=== PATIENT | female | born 1990 | race Two or more races ===

== ENCOUNTER 2016-09-06 10:05 | Emergency (ER) | payer SELFPAY ==
--- NOTE | 2016-09-06 10:21 | ER Document Report ---
ED Medical Screen (RME) - General Chief Complaint: Abdominal Pain Stated Complaint: LOWER ABDOMINAL PRESSURE Time seen by provider: 10:19 Mode of Arrival: Ambulatory Information source: Patient Notes: 26 yo female presnts to ed for abdominal pain dizziness and headache. dizziness comes and goes. LMP 03/21/16 TRAVEL OUTSIDE OF THE [place] IN LAST 30 DAYS: No - HPI Onset: Other - couple weeks Onset/Duration: Intermittent Quality of pain: Sharp Severity: Moderate Pain Level: 2 Associated Symptoms: Dizzy/lightheaded, Headache Exacerbated by: Other - wtress Relieved by: Denies Similar symptoms previously: Yes Recently seen / treated by doctor: No - Related Data Smoking: Non-smoker Frequency of alcohol use: None Drug Abuse: None Allergies/Adverse Reactions: No Known Allergies Allergy (Verified 09/08/14 17:38) Past Medical History Musculoskeltal Medical History: Reports Hx Musculoskeletal Trauma Traumatic Medical History: Reports: Hx Fractures Past Surgical History: Reports: Hx Tonsillectomy - Immunizations Immunizations up to date: Yes Hx Diphtheria, Pertussis, Tetanus Vaccination: Yes Physical Exam - Vital signs Vitals: Temp Pulse Resp BP Pulse Ox 97.8 F 92 16 115/62 99 09/06/16 10:15 09/06/16 10:15 09/06/16 10:15 09/06/16 10:15 09/06/16 10:15 Course - Vital Signs Vital signs: Temp Pulse Resp BP Pulse Ox 97.8 F 92 16 115/62 99 09/06/16 10:15 09/06/16 10:15 09/06/16 10:15 09/06/16 10:15 09/06/16 10:15
[2016-09-06 10:52] LABS: ABSOLUTE LYMPHOCYTES (AUTO) 1.2 10^3/uL (0.5-4.7); ABSOLUTE MONOCYTES (AUTO) 0.4 10^3/uL (0.1-1.4); ABSOLUTE NEUT (AUTO) 5.4 10^3/uL (1.7-8.2); BASOPHILS % (AUTO) 0.4 % (0-2); EOSINOPHILS % (AUTO) 0.4 % (0-6); HEMATOCRIT 27.9 % (36.0-47.0); HEMOGLOBIN 9.8 g/dL (12.0-15.5); HGB HCT DIFFERENCE 1.5; LYMPHOCYTES % (AUTO) 16.9 % (13-45); MEAN CORPUSCULAR HEMOGLOBIN 33.2 pg (27.0-33.4); MEAN CORPUSCULAR VOLUME 95 fl (80-97); MONOCYTES % (AUTO) 5.6 % (3-13); RED BLOOD COUNT 2.94 10^6/uL (3.72-5.28); RED CELL DISTRIBUTION WIDTH 12.6 % (11.5-14.0); SEGMENTED NEUTROPHILS % (AUTO) 76.7 % (42-78)
[2016-09-06 10:57] LABS: APPEARANCE,URINE TURBID; BILIRUBIN,URINE NEGATIVE (NEGATIVE); GLUCOSE, URINE NEGATIVE (NEGATIVE); KETONES,URINE NEGATIVE (NEGATIVE); LEUKOCYTE ESTERASE,URINE LARGE (NEGATIVE); NITRITE,URINE NEGATIVE (NEGATIVE); PROTEIN,URINE 30 mg/dL (NEGATIVE); URINE SPECIFIC GRAVITY 1.013; UROBILINOGEN,URINE NEGATIVE mg/dL (<2.0)
[2016-09-06] MEDS ORDERED: NORMAL SALINE 1000 ML 1,000 ML IV ONE (11:04)
[2016-09-06 11:23] LABS: ALANINE AMINOTRANSFERASE 23 U/L (9-52); ALBUMIN 3.3 g/dL (3.5-5.0); ALKALINE PHOSPHATASE 78 U/L (38-126); ANION GAP 8 (5-19); ASPARTATE AMINO TRANSFERASE 16 U/L (14-36); BILIRUBIN,TOTAL 0.5 mg/dL (0.2-1.3); BLOOD UREA NITROGEN 5 mg/dL (7-20); CARBON DIOXIDE 26 mmol/L (22-30); CHLORIDE 105 mmol/L (98-107); CREATININE RESULT 0.54 mg/dL (0.52-1.25); GLUCOSE 80 mg/dL (75-110); POTASSIUM 4.1 mmol/L (3.6-5.0)
[2016-09-06] MEDS ORDERED: CEFTRIAXONE 1 GM/D5W RTU 50 ML IV ONE (12:35)
--- NOTE | 2016-09-06 13:46 | ER Document Report ---
ED General - General Chief Complaint: Abdominal Pain Stated Complaint: LOWER ABDOMINAL PRESSURE Mode of Arrival: Ambulatory TRAVEL OUTSIDE OF THE [place] IN LAST 30 DAYS: No - HPI Patient complains to provider of: lower abdominal pain Notes: Patient coming in for evaluation of lower Sosa pain and some lightheadedness nausea. Patient states ongoing symptoms for the last week. Patient states recently found out that she was . Last Dejon cycles in March. Patient is a with 3 abortions. Denies any vaginal discharge vaginal bleeding. Patient currently does not have an [employer]M [employer] she sees health department. No recent travel no fevers no chills - Related Data Allergies/Adverse Reactions: No Known Allergies Allergy (Verified 09/08/14 17:38) Past Medical History - General Information source: Patient - Social History Smoking Status: Never Smoker Frequency of alcohol use: None Drug Abuse: None Family History: Other - Pt is adopted. Does not know Patient has suicidal ideation: No Patient has homicidal ideation: No Musculoskeltal Medical History: Reports Hx Musculoskeletal Trauma Traumatic Medical History: Reports: Hx Fractures Past Surgical History: Reports: Hx Tonsillectomy - Immunizations Immunizations up to date: Yes Hx Diphtheria, Pertussis, Tetanus Vaccination: Yes Review of Systems - Review of Systems Constitutional: No symptoms reported EENT: No symptoms reported Cardiovascular: No symptoms reported Respiratory: No symptoms reported Gastrointestinal: Abdominal pain, Nausea Genitourinary: No symptoms reported Female Genitourinary: No symptoms reported Musculoskeletal: No symptoms reported Skin: No symptoms reported Hematologic/Lymphatic: No symptoms reported Neurological/Psychological: No symptoms reported -: Yes All other systems reviewed and negative Physical Exam - Vital signs Vitals: Temp Pulse Resp BP Pulse Ox 97.8 F 92 16 115/62 99 09/06/16 10:15 09/06/16 10:15 09/06/16 10:15 09/06/16 10:15 09/06/16 10:15 Interpretation: Normal - General General appearance: Appears well, Alert - HEENT Head: Normocephalic, Atraumatic Eyes: Normal Pupils: PERRL - Respiratory Respiratory status: No respiratory distress Chest status: Nontender Breath sounds: Normal Chest palpation: Normal - Cardiovascular Rhythm: Regular Heart sounds: Normal auscultation Murmur: No - Abdominal Inspection: Gravid female Distension: No distension Bowel sounds: Normal Tenderness: Nontender Organomegaly: No organomegaly - Back Back: Normal, Nontender - Extremities General upper extremity: Normal inspection, Nontender, Normal color, Normal ROM , Normal temperature General lower extremity: Normal inspection, Nontender, Normal color, Normal ROM , Normal temperature, Normal weight bearing. No: Chace's sign - Neurological Neuro grossly intact: Yes Cognition: Normal Orientation: AAOx4 Kasi Coma Scale Eye Opening: Spontaneous Kasi Coma Scale Verbal: Oriented Kasi Coma Scale Motor: Obeys Commands [place] Coma Scale Total: 15 Speech: Normal Motor strength normal: LUE, RUE, LLE, RLE Sensory: Normal - Psychological Associated symptoms: Normal affect, Normal mood - Skin Skin Temperature: Warm Skin Moisture: Dry Skin Color: Normal Course - Re-evaluation Re-evalutation: 09/06/16 16:07 The patient presents with abdominal pain without signs of peritonitis or other life-threatening or serious etiology. The patient appears stable for discharge and has been instructed to return immediately if the symptoms worsen in any way , or in 8-12hr if not improved for re-evaluation. The patient has been instructed to return if the symptoms worsen or change in any way.. Patient with a UTI. Patient will be given antibiotics discuss case with [employer] patient's follow-up with the health department to get her Medicaid Medicare. Patient will be given Keflex urine was sent for culture. - Vital Signs Vital signs: Temp Pulse Resp BP Pulse Ox 98.2 F 90 17 113/64 99 09/06/16 13:58 09/06/16 13:58 09/06/16 13:58 09/06/16 13:58 09/06/16 13:58 - Laboratory Result Diagrams: 09/06/16 10:30 09/06/16 10:30 Laboratory results interpreted by me: 09/06/16 09/06/16 09/06/16 10:30 10:30 10:30 RBC 2.94 L Hgb 9.8 L Hct 27.9 L BUN 5 L Total Protein 6.0 L Albumin 3.3 L Beta HCG, Quant 66292.00 H Urine Protein 30 H Urine Blood SMALL H Ur Leukocyte Esterase LARGE H Discharge - Discharge Clinical Impression: UTI (urinary tract infection) Qualifiers: Urinary tract infection type: site unspecified Hematuria presence: without hematuria Qualified Code(s): N39.0 - Urinary tract infection, site not specified Twin Qualifiers: Multiple gestation type: unspecified Trimester: second trimester Qualified Code (s): O30.002 - Twin , unspecified number of placenta and unspecified number of amniotic sacs, second trimester Condition: Good Disposition: HOME, SELF-CARE Instructions: Cephalexin ([facility]), Urinary Tract Infection ([facility]), ([facility]) Additional Instructions: Is very important to follow-up with the health department for further evaluation of your . Please take antibiotics as prescribed. Please take nausea medication as prescribed For nausea and vomiting during I recomment: Start with 10-12.5 mg of pyridoxine (vitamin B6) three times a day for 2 days. If not fully effective, Increase to 12.5 mg of pyridoxine four times a day for 2 days. If not fully effective, Increase to 25 mg of pyridoxine three times a day for 2 days. If not fully effective, Continue 25 mg pyridoxine 3 times a day, and add 12.5 mg of doxylamine before bedtime each day for 2 days. If not fully effective, Continue 25 mg pyridoxine 3 times a day, and take 12.5 mg of doxylamine twice a day. If not fully effective, Continue 25 mg pyridoxine 3 times a day, and take 12.5 mg of doxylamine three times a day. If not fully effective, Continue 25 mg pyridoxine 3 times a day, and 12.5 mg of doxylamine 3 times a day , while adding Emetrol, one to two tablespoons (15-30 cc) taken once or twice a day as needed. (Emetrol is an [id number] mixture of sugar syrups and phosphoric acid [phosphorylated carbohydrate solution]) that acts by soothing the actual wall of the gastrointestinal tract). If not fully effective, Consult with your doctor. Prescriptions: Cephalexin Monohydrate [Keflex 500 mg Capsule] 500 mg PO QID 10 Days Metoclopramide HCl [Reglan] 5 mg PO Q6 #20 tablet Forms: Return to Work
[2016-09-06 15:26] VITALS: BP 113/64
== END 2016-09-06 13:58 | disposition home or self-care (01) ==
LOC: EDSTATUS 10:05 → ER 10:05
DX: N39.0 Urinary tract infection, site not specified (principal); O30.002 Twin pregnancy, unspecified number of placenta and unspecified number of amniotic sacs, second trimester; R10.9 Unspecified abdominal pain; R10.30 Lower abdominal pain, unspecified; R42 Dizziness and giddiness; R51 Headache
CPT/HCPCS: 99284; 96361; 96365; 36415; 87086; 84702; 85025; 80053; 81001; 76805; 76810; J7030; J0696

== ENCOUNTER 2016-10-07 10:25 | Inpatient (IN) | payer MEDICAID ==
[2016-10-07] MEDS ORDERED: RINGERS SOLUTION,LACTATED 1,000 ML IV PRN ×2 (10:33→18:10)
[2016-10-07] MEDS ORDERED: OXYTOCIN/NORMAL SALINE 20 UNIT/1,000 ML RTUINJ ONE (10:45)
[2016-10-07] MEDS ORDERED: MISOPROSTOL 0.2 MG TABLET ONE (10:45)
[2016-10-07] MEDS ORDERED: LIDOCAINE 1% INJ-PF (10 MG/ML) 30 ML SDV ONE (10:45)
[2016-10-07] MEDS ORDERED: BETAMET ACET/BETAMET NA INJ 6 MG/1 ML ONE ×2 (10:47→10:49)
[2016-10-07] MEDS ORDERED: BETAMET ACET/BETAMET NA INJ 6 MG/1 ML IM ONE (10:49)
[2016-10-07] MEDS ORDERED: METHYLERGONOVINE MALEATE INJ/PF 0.2 MG/1 ML AMPULE ONE (10:56)
[2016-10-07] MEDS ORDERED: EPHEDRINE SULFATE INJ 50 MG/1 ML AMPULE ONE (11:06)
[2016-10-07] MEDS ORDERED: FENTANYL/BUPIVACAINE/NS/PF 200 MCG/100 ML RTUINJ EPI ONE (11:07)
[2016-10-07] MEDS ORDERED: BUPIVACAINE HCL 0.25 % INJ/PF (2.5 MG/1 ML) 30 ML VIAL ONE (11:07)
[2016-10-07 11:10] LABS: ABSOLUTE LYMPHOCYTES (AUTO) 1.2 10^3/uL (0.5-4.7); ABSOLUTE MONOCYTES (AUTO) 0.4 10^3/uL (0.1-1.4); BASOPHILS % (AUTO) 0.4 % (0-2); EOSINOPHILS % (AUTO) 0.1 % (0-6); HEMATOCRIT 27.9 % (36.0-47.0); HEMOGLOBIN 9.5 g/dL (12.0-15.5); HGB HCT DIFFERENCE 0.6; LYMPHOCYTES % (AUTO) 14.1 % (13-45); MEAN CORPUSCULAR HEMOGLOBIN 32.4 pg (27.0-33.4); MEAN CORPUSCULAR HGB CONC 33.9 g/dL (32.0-36.0); MEAN CORPUSCULAR VOLUME 96 fl (80-97); RED BLOOD COUNT 2.92 10^6/uL (3.72-5.28); RED CELL DISTRIBUTION WIDTH 13.8 % (11.5-14.0); SEGMENTED NEUTROPHILS % (AUTO) 80.4 % (42-78); WHITE BLOOD COUNT 8.7 10^3/uL (4.0-10.5)
[2016-10-07] MEDS ORDERED: CEFAZOLIN 1 GM/D5W RTU 1 GM/50 ML RTUPB IV ONE ×3 (11:16→18:30)
--- NOTE | 2016-10-07 12:01 | L&D Flow Sheet ---
LD Flowsheet Datetime Report Generated by CPN: 10/07/2016 12:00 Datetime: 10/07/2016 11:46 Vital Signs NBP Sys/Rina/Mean (mmHg): 109 (QS system process) : 56 (QS system process) : 77 (QS system process) Pulse: 84 (QS system process) Datetime: 10/07/2016 11:45 Vital Signs NBP Sys/Rina/Mean (mmHg): 110 (QS system process) : 58 (QS system process) : 78 (QS system process) Pulse: 77 (QS system process) Datetime: 10/07/2016 11:44 Vital Signs NBP Sys/Rina/Mean (mmHg): 106 (QS system process) : 55 (QS system process) : 74 (QS system process) Pulse: 88 (QS system process) Datetime: 10/07/2016 11:43 Vital Signs NBP Sys/Rina/Mean (mmHg): 111 (QS system process) : 56 (QS system process) : 77 (QS system process) Pulse: 88 (QS system process) Datetime: 10/07/2016 11:42 Vital Signs NBP Sys/Rina/Mean (mmHg): 109 (QS system process) : 61 (QS system process) : 78 (QS system process) Pulse: 85 (QS system process) Datetime: 10/07/2016 11:41 Vital Signs NBP Sys/Rina/Mean (mmHg): 113 (QS system process) : 64 (QS system process) : 82 (QS system process) Pulse: 86 (QS system process) Vaginal Exam Dilatation (cm): 5.0 (Jney Alberto, RN) Effacement (%): 100 (Jeny Alberto, RN) Exam by: Dr. Lizama (Jeny Alberto, RN) Datetime: 10/07/2016 11:40 Vital Signs NBP Sys/Rina/Mean (mmHg): 119 (QS system process) : 61 (QS system process) : 84 (QS system process) Pulse: 86 (QS system process) Datetime: 10/07/2016 11:39 Vital Signs NBP Sys/Rina/Mean (mmHg): 115 (QS system process) : 65 (QS system process) : 84 (QS system process) Pulse: 80 (QS system process) Datetime: 10/07/2016 11:38 Vital Signs NBP Sys/Rina/Mean (mmHg): 110 (QS system process) : 57 (QS system process) : 76 (QS system process) Pulse: 68 (QS system process) Datetime: 10/07/2016 11:37 Vital Signs NBP Sys/Rina/Mean (mmHg): 104 (QS system process) : 56 (QS system process) : 76 (QS system process) Pulse: 82 (QS system process) Datetime: 10/07/2016 11:36 Vital Signs NBP Sys/Rina/Mean (mmHg): 112 (QS system process) : 55 (QS system process) : 76 (QS system process) Pulse: 80 (QS system process) Datetime: 10/07/2016 11:34 Vital Signs NBP Sys/Rina/Mean (mmHg): 132 (QS system process) : 67 (QS system process) : 93 (QS system process) Pulse: 93 (QS system process) Datetime: 10/07/2016 11:33 Vital Signs NBP Sys/Rina/Mean (mmHg): 149 (QS system process) : 86 (QS system process) : 106 (QS system process) Pulse: 98 (QS system process) Datetime: 10/07/2016 11:32 Vital Signs NBP Sys/Rina/Mean (mmHg): 152 (QS system process) : 95 (QS system process) : 116 (QS system process) Pulse: 93 (QS system process) Datetime: 10/07/2016 11:31 Vital Signs NBP Sys/Rina/Mean (mmHg): 137 (QS system process) : 86 (QS system process) : 104 (QS system process) Pulse: 83 (QS system process) Datetime: 10/07/2016 11:30 Anesthesia Epidural Procedure: Cath Placed (Jeny Alberto, RN) Anesthesia Epidural Procedure: Test Dose (Jeny Alberto, RN) Datetime: 10/07/2016 11:28 Pulse: 67 (QS system process) SpO2 (%): 100 (QS system process) Datetime: 10/07/2016 11:23 Pulse: 89 (QS system process) SpO2 (%): 100 (QS system process) Datetime: 10/07/2016 11:22 Procedure TIME OUT Procedure Verify: Correct Patient Identity; Correct Side and Site are Marked; Accurate Procedure Consent Form; Agreement on Procedure to be Done; Correct Patient Position (Jeny Dominguez, RN) Anesthesia Comments: Dr. Couch at bedside (Jeny Dominguez, RN) Datetime: 10/07/2016 11:18 Pulse: 91 (QS system process) SpO2 (%): 100 (QS system process) Datetime: 10/07/2016 11:13 Pulse: 98 (QS system process) SpO2 (%): 98 (QS system process) Datetime: 10/07/2016 10:52 Patient Care IV/Blood Work: New IV Bag Hung (Mary Marhefka, RN) Teaching Unit Routine: Consents Signed (Mary Marhefka, RN) Datetime: 10/07/2016 10:50 Medications Steroids: Celestone 12mg IM - Dose 1 (Mary Marhefka, RN) Medication Comments: Rt buttock (Mary Marhefka, RN) Datetime: 10/07/2016 10:36 Vital Signs NBP Sys/Rina/Mean (mmHg): 106 (QS system process) : 53 (QS system process) : 75 (QS system process) Pulse: 87 (QS system process) Datetime: 10/07/2016 10:31 Patient Care IV/Blood Work: IV Bolus Started (Mary Jo Zafar, RN) Datetime: 10/07/2016 10:29 Patient Position/Activity: Left Lateral (Mary Jo Zafar, RN) Datetime: 10/07/2016 10:28 Assessment A Comments: Monitors applied, explained to pt. (Mary Jo Zafar RN)
--- NOTE | 2016-10-07 14:01 | L&D Flow Sheet ---
LD Flowsheet Datetime Report Generated by CPN: 10/07/2016 14:00 Datetime: 10/07/2016 13:46 NBP Sys/Rina/Mean (mmHg): 114 (QS system process) : 59 (QS system process) : 81 (QS system process) Pulse: 88 (QS system process) LaborFlag: Antepartum (QS system process) Datetime: 10/07/2016 13:45 Monitor Mode: External; Palpation (Mary Jo Zafar RN) Frequency (min): 2.5-3 (Mary Jo Zafar, RN) Quality: Moderate (Mary Jo Zafar, RN) Duration (sec): 60-90 (Mary Jo Zafar, RN) Resting Tone (Palpate): Relaxed (Mary Jo Zafar, RN) Monitor Mode: External US (Mary Jo Zafar, RN) FHR Baseline Rate : 135 (Mary Jo Zafar, RN) Variability: Moderate 6-25 bpm (Mary Jo Zafar, RN) Accelerations: 15X15 (Mary Jo Zafar, RN) Decelerations: Variable (Mary Jo Zafar, RN) Monitor Mode: External US (Mary Jo Zafar, RN) FHR Baseline Rate : 135 (Mary Jo Zafar, RN) Variability: Moderate 6-25 bpm (Mary Jo Zafar, RN) Accelerations: 15X15 (Mary Jo Zafar, RN) Decelerations: None (Mary Jo Zafar, RN) Datetime: 10/07/2016 13:33 NBP Sys/Rina/Mean (mmHg): 118 (QS system process) : 63 (QS system process) : 83 (QS system process) Pulse: 80 (QS system process) LaborFlag: Antepartum (QS system process) Datetime: 10/07/2016 13:30 Monitor Mode: External; Palpation (Mary Jo Zafar, RN) Frequency (min): 1-4 (Mary Jo Zafar, RN) Quality: Moderate (Mary Jo Zafar, RN) Duration (sec): 60-100 (Mary Jo Zafar, RN) Resting Tone (Palpate): Relaxed (Mary Jo Zafar, RN) Monitor Mode: External US (Mary Jo Zafar, RN) FHR Baseline Rate : 135 (Mar Yjo Zafar, RN) Variability: Moderate 6-25 bpm (Mary Jo Zafar, RN) Accelerations: 15X15 (Mary Jo Zafar, RN) Decelerations: None (Mary Jo Zafar, RN) Monitor Mode: External US (Mary Jo Zafar, RN) Variability: Moderate 6-25 bpm (Mary Jo Zafar, RN) Accelerations: 15X15 (Mary Jo Zafar, RN) Decelerations: None (Mary Jo Zafar, RN) Datetime: 10/07/2016 13:16 NBP Sys/Rina/Mean (mmHg): 118 (QS system process) : 61 (QS system process) : 84 (QS system process) Pulse: 109 (QS system process) LaborFlag: Antepartum (QS system process) Datetime: 10/07/2016 13:15 Monitor Mode: External; Palpation (Mary Jo Zafar, RN) Frequency (min): 2-4 (Mary Jo Zafar, RN) Quality: Moderate (Mary Jo Zafar, RN) Duration (sec): 60-90 (Mary Jo Zafar, RN) Resting Tone (Palpate): Relaxed (Mary Jo Zafar, RN) Monitor Mode: External US (Mary Jo Zafar, RN) FHR Baseline Rate : 135 (Mary Jo Zafar, RN) Variability: Moderate 6-25 bpm (Mary Jo Zafar, RN) Accelerations: 15X15 (Mary Jo Zafar, RN) Decelerations: None (Mary Jo Zafar, RN) Monitor Mode: External US (Mary Jo Zafar, RN) FHR Baseline Rate : 140 (Mary Jo Zafar, RN) Variability: Moderate 6-25 bpm (Mary Jo Zafar, RN) Accelerations: 15X15 (Mary Jo Zafar, RN) Decelerations: None (Mary Jo Zafar, RN) Datetime: 10/07/2016 13:02 NBP Sys/Rina/Mean (mmHg): 117 (QS system process) : 61 (QS system process) : 83 (QS system process) Pulse: 86 (QS system process) LaborFlag: Antepartum (QS system process) Datetime: 10/07/2016 13:00 Monitor Mode: External; Palpation (Mary Jo Zafar, RN) Frequency (min): 1-3 (Mary Jo Zafar, RN) Quality: Moderate (Mary Jo Zafar, RN) Duration (sec): 60-80 (Mary Jo Zafar, RN) Resting Tone (Palpate): Relaxed (Mary Jo Zafar, RN) Monitor Mode: External US (Mary Jo Zafar, RN) FHR Baseline Rate : 130 (Mary Jo Zafar, RN) Variability: Moderate 6-25 bpm (Mary Jo Zafar, RN) Accelerations: 15X15 (Mary Jo Zafar, RN) Decelerations: None (Mary Jo Zafar, RN) Monitor Mode: External US (Mary Jo Zafar, RN) FHR Baseline Rate : 140 (Mary Jo Zafar, RN) Variability: Moderate 6-25 bpm (Mary Jo Zafar, RN) Accelerations: 15X15 (Mary Jo Zafar, RN) Decelerations: None (Mary Jo Zafar, RN) Datetime: 10/07/2016 12:46 NBP Sys/Rina/Mean (mmHg): 109 (QS system process) : 56 (QS system process) : 76 (QS system process) Pulse: 77 (QS system process) LaborFlag: Antepartum (QS system process) Datetime: 10/07/2016 12:45 Monitor Mode: External; Palpation (Mary Jo Zafar, RN) Frequency (min): 1.5-3 (Mary Jo Zafar, RN) Quality: Moderate (Mary Jo Zafar, RN) Duration (sec): 60-90 (Mary Jo Zafar, RN) Resting Tone (Palpate): Relaxed (Mary Jo Zafar, RN) Monitor Mode: External US (Mary Jo Zafar, RN) FHR Baseline Rate : 135 (Mary Jo Zafar, RN) Variability: Moderate 6-25 bpm (Mary Jo Zafar, RN) Accelerations: None (Mary Jo Zafar, RN) Accelerations: 15X15 (Mary Jo Zafar, RN) Decelerations: None (Mary Jo Zafar, RN) Monitor Mode: External US (Mary Jo Zafar, RN) FHR Baseline Rate : 140 (Mary Jo Zafar, RN) Variability: Moderate 6-25 bpm (Mary Jo Zafar, RN) Accelerations: None (Mary Jo Zafar, RN) Decelerations: None (Mary Jo Zafar, RN) Datetime: 10/07/2016 12:41 Dilatation (cm): 7.0 (Mary Jo Zafar RN) Effacement (%): 100 (Mary Jo Zafar RN) Exam by: Jessica Zafar RN (Mary Jo Zafar RN) Datetime: 10/07/2016 12:32 NBP Sys/Rina/Mean (mmHg): 101 (QS system process) : 55 (QS system process) : 72 (QS system process) Pulse: 70 (QS system process) LaborFlag: Antepartum (QS system process) Datetime: 10/07/2016 12:30 Monitor Mode: External; Palpation (Mary Jo Zafar RN) Frequency (min): 1.5-5 (Mary Jo Zafar RN) Quality: Moderate (Mary Jo Zafar RN) Duration (sec): 70-100 (Mary Jo Zafar RN) Resting Tone (Palpate): Relaxed (Mary Jo Zafar RN) Monitor Mode: External US (Mary Jo Zafar RN) FHR Baseline Rate : 140 (Mary Jo Zafar RN) Variability: Moderate 6-25 bpm (Mary Jo Zafar, RN) Accelerations: 15X15 (Mary Jolul Zafar, RN) Decelerations: None (Mary Jo Zafar, RN) Monitor Mode: External US (Mary Jo Zafar, RN) FHR Baseline Rate : 145 (Mary Jo Zafar, RN) Variability: Moderate 6-25 bpm (Mary Jo Zafar, RN) Accelerations: 10X10 (Mary Jo Zafar, RN) Decelerations: None (Mary Jo Zafar, RN) Datetime: 10/07/2016 12:18 NBP Sys/Rina/Mean (mmHg): 110 (QS system process) : 56 (QS system process) : 78 (QS system process) Pulse: 84 (QS system process) LaborFlag: Antepartum (QS system process) Datetime: 10/07/2016 12:15 Monitor Mode: External; Palpation (Mary Jo Zafar, RN) Frequency (min): 2-4 (Mary Jo Zafar, RN) Quality: Moderate (Mary Jo Zafar, RN) Duration (sec): 60-100 (Mary Jo Zafar, RN) Resting Tone (Palpate): Relaxed (Mary Jo Zafar, RN) Monitor Mode: External US (Mary Jo Zafar, RN) FHR Baseline Rate : 140 (Mary Jo Zafar, RN) Variability: Moderate 6-25 bpm (Mary Jo Zafar, RN) Accelerations: 15X15 (Mary Jo Zafar, RN) Decelerations: None (Mary Jo Zafar, RN) Monitor Mode: External US (Mary Jo Zafar, RN) FHR Baseline Rate : 150 (Mary Jo Zafar, RN) Variability: Moderate 6-25 bpm (Mary Jo Zafar, RN) Accelerations: 15X15 (Mary Jo Zafar, RN) Decelerations: None (Mary Jo Zafar, RN) Datetime: 10/07/2016 12:02 NBP Sys/Rina/Mean (mmHg): 112 (QS system process) : 62 (QS system process) : 81 (QS system process) Pulse: 83 (QS system process) LaborFlag: Antepartum (QS system process) Datetime: 10/07/2016 12:00 Monitor Mode: External; Palpation (Mary Jo Zafar, RN) Frequency (min): 2-3 (Mary Jo Zafar, RN) Quality: Moderate (Mary Jo Zafar, RN) Duration (sec): 60-90 (Mary Jo Zafar RN) Resting Tone (Palpate): Relaxed (Mary Jo Zafar RN) Monitor Mode: External US (Mary Jo Zafar RN) FHR Baseline Rate : 140 (Mary Jo Zafar RN) Variability: Moderate 6-25 bpm (Mary Jo Zafar RN) Accelerations: 15X15 (Mary Jo Zafar RN) Decelerations: Late (Mary Jo Zafar RN) Monitor Mode: External US (Mary Jo Zafar RN) FHR Baseline Rate : 140 (Mary Jo Zafar RN) Variability: Moderate 6-25 bpm (Mary Jo Zafar RN) Accelerations: 15X15 (Mary Jo Zafar RN) Decelerations: None (Mary Jo Zafar RN)
[2016-10-07 14:13] LABS: APPEARANCE,URINE CLEAR; BILIRUBIN,URINE NEGATIVE (NEGATIVE); GLUCOSE, URINE NEGATIVE (NEGATIVE); KETONES,URINE 20 mg/dL (NEGATIVE); LEUKOCYTE ESTERASE,URINE SMALL (NEGATIVE); NITRITE,URINE NEGATIVE (NEGATIVE); PROTEIN,URINE NEGATIVE (NEGATIVE); URINE SPECIFIC GRAVITY 1.005; UROBILINOGEN,URINE NEGATIVE mg/dL (<2.0)
[2016-10-07 14:27] LABS: URINE BARBITURATES SCREEN NEGATIVE; URINE METHADONE SCREEN NEGATIVE; URINE OPIATES LOW NEGATIVE; URINE PHENCYCLIDINE SCREEN NEGATIVE
--- NOTE | 2016-10-07 16:01 | L&D Flow Sheet ---
LD Flowsheet Datetime Report Generated by CPN: 10/07/2016 16:00 Datetime: 10/07/2016 15:37 Membrane Status: Ruptured (Mary Jo Zafar RN) Membranes Ruptured Date/Time: 10/07/2016 15:37 (Mary Jo Zafar RN) Membranes Rupture Method: Artificial (Mary Jo Zafar RN) Amniotic Fluid Color: Clear (Mary Jo Zafar RN) Amniotic Fluid Amount: Moderate (Mary Jo Zafar RN) Amniotic Fluid Odor: Normal (Mary Jo Zafar RN) Datetime: 10/07/2016 15:32 NBP Sys/Rina/Mean (mmHg): 128 (QS system process) : 68 (QS system process) : 91 (QS system process) Pulse: 82 (QS system process) LaborFlag: Antepartum (QS system process) Datetime: 10/07/2016 15:30 Monitor Mode: External; Palpation (Mary Jo Zafar, RN) Frequency (min): 1.5-4 (Mary Jo Zafar, RN) Quality: Moderate (Mary Jo Zafar, RN) Duration (sec): 60-80 (Mary Jo Zafar, RN) Resting Tone (Palpate): Relaxed (Mary Jo Zafar, RN) Monitor Mode: External US (Mary Jo Zafar, RN) FHR Baseline Rate : 145 (Mary Jo Zafar, RN) Variability: Moderate 6-25 bpm (Mary Jo Zafar, RN) Accelerations: 15X15 (Mary Jo Zafar, RN) Decelerations: None (Mary Jo Zafar, RN) Monitor Mode: External US (Mary Jo Zafar, RN) FHR Baseline Rate : 140 (Mary Jo Zafar, RN) Variability: Moderate 6-25 bpm (Mary Jo Zafar, RN) Accelerations: 15X15 (Mary Jo Zafar, RN) Decelerations: None (Mary Jo Zafar, RN) Datetime: 10/07/2016 15:16 NBP Sys/Rina/Mean (mmHg): 111 (QS system process) : 57 (QS system process) : 80 (QS system process) Pulse: 86 (QS system process) LaborFlag: Antepartum (QS system process) Datetime: 10/07/2016 15:15 Monitor Mode: External; Palpation (Mary Jo Zafar, RN) Frequency (min): 1-3 (Mary Jo Zafar, RN) Quality: Moderate (Mary Jo Zafar, RN) Duration (sec): 60-90 (Mary Jo Zafar, RN) Resting Tone (Palpate): Relaxed (Mary Jo Zafar, RN) Monitor Mode: External US (Mary Jo Zafar, RN) FHR Baseline Rate : 145 (Mary Jo Zafar, RN) Variability: Moderate 6-25 bpm (Mary Jo Zafar, RN) Accelerations: 15X15 (Mary Jo Zafar, RN) Decelerations: None (Mary Jo Zafar, RN) Monitor Mode: External US (Mary Jo Zafar, RN) FHR Baseline Rate : 140 (Mary Jo Zafar, RN) Variability: Moderate 6-25 bpm (Mary Jo Zafar, RN) Accelerations: 15X15 (Mary Jo Zafar, RN) Decelerations: None (Mary Jo Zafar, RN) Datetime: 10/07/2016 15:02 NBP Sys/Rina/Mean (mmHg): 113 (QS system process) : 56 (QS system process) : 75 (QS system process) Pulse: 85 (QS system process) Temperature (F): 98.2 (Mary Jo Zafar RN) Temperature (C): 36.8 (QS system process) Temperature Route: Oral (Mary Jo Zafar RN) LaborFlag: Antepartum (QS system process) Datetime: 10/07/2016 15:00 Monitor Mode: External; Palpation (Mary Jo Zafar RN) Frequency (min): 1-3 (Mary Jo Zafar RN) Quality: Moderate (Mary Jo Zafar RN) Duration (sec): 60-80 (Mary Jo Zafar RN) Resting Tone (Palpate): Relaxed (Mary Jo Zafar RN) Monitor Mode: External US (Mary Jo Zafar RN) FHR Baseline Rate : 145 (Mary Jo Zafar RN) Variability: Moderate 6-25 bpm (Mary Jo Zafar RN) Accelerations: 15X15 (Mary Jo Zafar RN) Decelerations: None (Mary Jo Zafar RN) Monitor Mode: External US (Mary Jo Zafar RN) FHR Baseline Rate : 140 (Mary Jo Zafar, RN) Variability: Moderate 6-25 bpm (Mary Jo Zafar, RN) Accelerations: 15X15 (Mary Jo Zafar, RN) Decelerations: Variable (Mary Jo Zafar, RN) Datetime: 10/07/2016 14:47 NBP Sys/Rina/Mean (mmHg): 110 (QS system process) : 51 (QS system process) : 74 (QS system process) Pulse: 72 (QS system process) LaborFlag: Antepartum (QS system process) Datetime: 10/07/2016 14:45 Monitor Mode: External; Palpation (Mary Jo Zafar RN) Frequency (min): 1-3 (Mary Jo Zafar RN) Quality: Moderate (Mary Jo Zafar RN) Duration (sec): 60-90 (Mary Jo Zafar RN) Resting Tone (Palpate): Relaxed (Mary Jo Zafar RN) Monitor Mode: External US (Mary Jo Zafar RN) FHR Baseline Rate : 145 (Mary Jo Zafar RN) Variability: Moderate 6-25 bpm (Mary Jo Zafar, RN) Accelerations: None (Mary Jo Zafar, RN) Decelerations: Late (Mary Jo Zafar, RN) Monitor Mode: External US (Mary Jo Zafar, RN) FHR Baseline Rate : 140 (Mary Jo Zafar, RN) Variability: Moderate 6-25 bpm (Mary Jo Zafar, RN) Accelerations: None (Mary Jo Zafar, RN) Decelerations: Variable (Mary Jo Zafar, RN) Datetime: 10/07/2016 14:36 Patient Position/Activity: Left Lateral (Mary Jo Zafar, RN) Datetime: 10/07/2016 14:33 Dilatation (cm): 8.0 (Mary Jo Zafar, RN) Effacement (%): 100 (Mary Jo Zafar, RN) Station: 0 (Mary Jo Zafar, RN) Exam by: Dr. Lizama (Mary Jo Zafar, BOB) Datetime: 10/07/2016 14:31 NBP Sys/Rina/Mean (mmHg): 105 (QS system process) : 55 (QS system process) : 74 (QS system process) Pulse: 82 (QS system process) LaborFlag: Antepartum (QS system process) Datetime: 10/07/2016 14:30 Monitor Mode: External; Palpation (Mary Jo Zafar, RN) Frequency (min): 1-3 (Mary Jo Zafar, RN) Quality: Moderate (Mary Jo Zafar, RN) Duration (sec): 60-90 (Mary Jo Zafar, RN) Resting Tone (Palpate): Relaxed (Mary Jo Zafar, RN) Monitor Mode: External US (Mary Jo Zafar, RN) FHR Baseline Rate : 145 (Mary Jo Zafar, RN) Variability: Moderate 6-25 bpm (Mary Jo Zafar, RN) Accelerations: 15X15 (Mary Jo Zafar, RN) Decelerations: None (Mary Jo Zafar, RN) Monitor Mode: External US (Mary Jo Zafar, RN) FHR Baseline Rate : 145 (Mary Jo Zafar, RN) Variability: Moderate 6-25 bpm (Mary Jo Zafar, RN) Accelerations: 15X15 (Mary Jo Zafar, RN) Decelerations: None (Mary Jo Zafar, RN) Datetime: 10/07/2016 14:18 NBP Sys/Rina/Mean (mmHg): 107 (QS system process) : 54 (QS system process) : 76 (QS system process) Pulse: 80 (QS system process) LaborFlag: Antepartum (QS system process) Datetime: 10/07/2016 14:15 Monitor Mode: External; Palpation (Mary Jo Zafar, RN) Frequency (min): 1-4 (Mary Jo Zafar, RN) Quality: Moderate (Mary Jo Zafar, RN) Duration (sec): 60-90 (Mary Jo Zafar, RN) Resting Tone (Palpate): Relaxed (Mary Jo Zafar, RN) Monitor Mode: External US (Mary Jo Boon, RN) FHR Baseline Rate : 140 (Mary Jo Boon, RN) Variability: Moderate 6-25 bpm (Mary Jolul Boon, RN) Accelerations: 15X15 (Mary Jolul Boon, RN) Decelerations: Late (Mary Jo Zafar, RN) Monitor Mode: External US (Mary Jo Zafar, RN) FHR Baseline Rate : 145 (Mary Jo Boon, RN) Variability: Moderate 6-25 bpm (Mary Jo Zafar, RN) Accelerations: 15X15 (Mary Jo Zafar, RN) Decelerations: None (Mary Jo Zafar, RN) Datetime: 10/07/2016 14:10 Patient Position/Activity: Left Lateral (Mary Jo Zafar, RN) Datetime: 10/07/2016 14:01 NBP Sys/Rina/Mean (mmHg): 120 (QS system process) : 62 (QS system process) : 84 (QS system process) Pulse: 77 (QS system process) LaborFlag: Antepartum (QS system process) Datetime: 10/07/2016 14:00 Monitor Mode: External; Palpation (Mary Jo Zafar RN) Frequency (min): 2-3 (Mary Jo Zafar RN) Quality: Moderate (Mary Jo Zafar RN) Duration (sec): 60-90 (Mary Jo Zafar RN) Resting Tone (Palpate): Relaxed (Mary Jo Zafar RN) Monitor Mode: External US (Mary Jo Zafar RN) FHR Baseline Rate : 140 (Mary Jo Zafar RN) Variability: Moderate 6-25 bpm (Mary Jo Zafar RN) Accelerations: 15X15 (Mary Jo Zafar RN) Decelerations: None (Mary Jo Zafar RN) Monitor Mode: External US (Mary Jo Zafar RN) FHR Baseline Rate : 145 (Mary Jo Zafar RN) Variability: Moderate 6-25 bpm (Mary Jo Zafar RN) Accelerations: 15X15 (Mary Jo Zafar RN) Decelerations: None (Mary Jo Zafar RN)
[2016-10-07] MEDS ORDERED: MORPHINE SULFATE 10 MG/ML INJ ONE (16:45)
[2016-10-07] MEDS ORDERED: PROPOFOL INJ 200 MG/20 ML VIAL IV ONE (16:45)
[2016-10-07] MEDS ORDERED: ONDANSETRON HCL INJ/PF 4 MG/2 ML SDV ONE (16:45)
--- NOTE | 2016-10-07 17:24 | Brief Operative Note ---
BRIEF OPERATIVE REPORT DATE OF SURGERY: 10/07/16 TIME OF SURGERY: 17:00 PREOPERATIVE DIAGNOSIS: 31week twins labor +cocaine and mj. abruption. undesired future fertility POSTOPERATIVE DIAGNOSIS: same, delivered SURGEON: JAYLEEN HARRIS FINDINGS: twin A male vertex 1570g (3lb7oz) ap 6/8 . Twin B male footling breech 1820g emergent c/s. twin placentas intact 3vc times 2 removed with noted abruption COMPLICATIONS: none ESTIMATED BLOOD LOSS: 1000 TISSUE REMOVED OR ALTERED: placenta TECHNICAL PROCEDURE: Spontaneous Vaginal Delivery Twin A. Primary STAT Low Transverse Section Twin B. Bilateral Tubal Ligation with filshie clips
[2016-10-07 17:49] LABS: ARTERIAL BLOOD BASE EXCESS -6.7 mmol/L
[2016-10-07] MEDS ORDERED: DIPHENHYDRAMINE HCL 50 MG/ML VIAL ONE (17:49)
[2016-10-07] MEDS ORDERED: MEPERIDINE HCL/PF INJ 25 MG/1 ML DISP.SYRIN ONE (17:49)
[2016-10-07] MEDS ORDERED: PROMETHAZINE HCL INJ 25 MG/1 ML VIAL ONE (17:49)
--- NOTE | 2016-10-07 18:01 | L&D Flow Sheet ---
LD Flowsheet Datetime Report Generated by CPN: 10/07/2016 18:00 Datetime: 10/07/2016 17:59 NBP Sys/Rina/Mean (mmHg): 117 (QS system process) : 68 (QS system process) : 85 (QS system process) Pulse: 79 (QS system process) Datetime: 10/07/2016 17:58 Pulse: 81 (QS system process) SpO2 (%): 98 (QS system process) Datetime: 10/07/2016 17:54 NBP Sys/Rina/Mean (mmHg): 112 (QS system process) : 66 (QS system process) : 84 (QS system process) Pulse: 85 (QS system process) Datetime: 10/07/2016 17:53 Pulse: 74 (QS system process) SpO2 (%): 98 (QS system process) Datetime: 10/07/2016 17:49 NBP Sys/Rina/Mean (mmHg): 115 (QS system process) : 63 (QS system process) : 81 (QS system process) Pulse: 89 (QS system process) Datetime: 10/07/2016 17:48 Pulse: 85 (QS system process) SpO2 (%): 99 (QS system process) Datetime: 10/07/2016 17:44 NBP Sys/Rina/Mean (mmHg): 114 (QS system process) : 66 (QS system process) : 85 (QS system process) Pulse: 76 (QS system process) Datetime: 10/07/2016 17:43 Pulse: 79 (QS system process) SpO2 (%): 98 (QS system process) Datetime: 10/07/2016 17:39 NBP Sys/Rina/Mean (mmHg): 113 (QS system process) : 63 (QS system process) : 81 (QS system process) Pulse: 80 (QS system process) Datetime: 10/07/2016 17:38 Pulse: 80 (QS system process) SpO2 (%): 98 (QS system process) Datetime: 10/07/2016 17:34 NBP Sys/Rina/Mean (mmHg): 111 (QS system process) : 65 (QS system process) : 81 (QS system process) Pulse: 78 (QS system process) Datetime: 10/07/2016 17:33 Pulse: 83 (QS system process) SpO2 (%): 97 (QS system process) Datetime: 10/07/2016 17:29 NBP Sys/Rina/Mean (mmHg): 114 (QS system process) : 63 (QS system process) : 83 (QS system process) Pulse: 90 (QS system process) Respirations: 16 (Mary Jo Zafar RN) Datetime: 10/07/2016 17:28 Pulse: 87 (QS system process) SpO2 (%): 97 (QS system process) Datetime: 10/07/2016 17:24 NBP Sys/Rina/Mean (mmHg): 118 (QS system process) : 63 (QS system process) : 84 (QS system process) Pulse: 92 (QS system process) Respirations: 16 (Mary Jo Zafar RN) Pain Scale: 0 (Mary Jo Zafar RN) Pain Presence: None/Denies (Mary Jo Zafar RN) Pain Type: N/A (Mary Jo Zafar RN) Pain Goal: 0 (Mary Jo Zafar RN) Datetime: 10/07/2016 17:23 Pulse: 102 (QS system process) SpO2 (%): 97 (QS system process) Datetime: 10/07/2016 17:19 NBP Sys/Rina/Mean (mmHg): 122 (QS system process) : 59 (QS system process) : 84 (QS system process) Pulse: 105 (QS system process) Respirations: 16 (Mary Jo Zafar RN) Datetime: 10/07/2016 17:17 Pulse: 109 (QS system process) SpO2 (%): 97 (QS system process) Datetime: 10/07/2016 17:13 NBP Sys/Rina/Mean (mmHg): 122 (QS system process) : 58 (QS system process) : 82 (QS system process) Pulse: 109 (QS system process) Respirations: 16 (Mary Jo Zafar RN) Temperature (F): 97.7 (Mary Jo Zafar, RN) Temperature (C): 36.5 (QS system process) Temperature Route: Oral (Mary Jo Zafar RN) Pain Scale: 0 (Mary Jo Zafar RN) Pain Presence: None/Denies (Mary Jo Zafar RN) Pain Type: N/A (Mary Jo Zafar RN) Pain Goal: 0 (Mary Jo Zafar RN) Datetime: 10/07/2016 17:12 Stage of : Recovery (Mary Jo Zafar RN) Pulse: 112 (QS system process) SpO2 (%): 99 (QS system process) Datetime: 10/07/2016 16:32 Procedure Type: Primary c/section (Mary Jo Zafar RN) Procedure Verify: Correct Patient Identity; Correct Side and Site are Marked; Accurate Procedure Consent Form; Agreement on Procedure to be Done; Correct Patient Position (Mary Jo Zafar RN) Datetime: 10/07/2016 16:15 Monitor Mode: External (Jeny Alberto, RN) Frequency (min): 1-3 (Jeny Alberto, RN) Quality: Moderate (Jeny Alberto, RN) Duration (sec): 60-110 (Jeny Alberto, RN) Resting Tone (Palpate): Relaxed (Jeny Alberto, RN) Monitor Mode: External US (Jeny Alberto, RN) FHR Baseline Rate : 170 (Jeny Alberto, RN) Variability: Moderate 6-25 bpm (Jeny Alberto, RN) Accelerations: None (Jeny Alberto, RN) Decelerations: Variable (Jeny Alberto, RN) Monitor Mode: External US (Jeny Alberto, RN) FHR Baseline Rate : 130 (Jeny Alberto, RN) Variability: Moderate 6-25 bpm (Jeny Alberto, RN) Accelerations: None (Jeny Alberto, RN) Decelerations: Variable (Jeny Alberto, RN) Datetime: 10/07/2016 16:00 Monitor Mode: External (Jeny Alberto, RN) Frequency (min): x1 (Jeny Alberto, RN) Quality: Moderate (Jeny Alberto, RN) Duration (sec): 70 (Jeny Alberto, RN) Resting Tone (Palpate): Relaxed (Jeny Alberto, RN) Monitor Mode: External US (Jeny Alberto, RN) FHR Baseline Rate : 140 (Jeny Alberto, RN) Variability: Moderate 6-25 bpm (Jeny Alberto, RN) Accelerations: 15X15 (Jeny Alberto, RN) Decelerations: None (Jeny Alberto, RN) Monitor Mode: External US (Jeny Alberto, RN) FHR Baseline Rate : 130 (Jeny Alberto, RN) Variability: Moderate 6-25 bpm (Jeny Alberto, RN) Accelerations: 15X15 (Jeny Alberto, RN) Decelerations: None (Jeny Alberto, RN)
[2016-10-07] MEDS ORDERED: HYDROMORPHONE HCL INJ/PF 2 MG/ML AMPULE IV PRN (18:10)
[2016-10-07] MEDS ORDERED: DIPH/PERTUSS(ACELL)/TETANUS VAC/PF 0.5 ML SYR (>=10YO) IM PRN (18:10)
[2016-10-07] MEDS ORDERED: PROMETHAZINE HCL INJ 25 MG/1 ML VIAL IV PRN (18:10)
[2016-10-07] MEDS ORDERED: ACETAMINOPHEN 100 ML IV PRN (18:10)
[2016-10-07] MEDS ORDERED: SIMETHICONE 80 MG TAB.CHEW PO PRN (18:10)
[2016-10-07] MEDS ORDERED: OXYCODONE-ACETAMINOPHEN 5-325 MG TABLET PO PRN (18:10)
[2016-10-07] MEDS ORDERED: ACETAMINOPHEN 325 MG TABLET PO PRN (18:10)
[2016-10-07] MEDS ORDERED: MEASLES,MUMPS&RUBELLA VACC/PF 0.5 ML VIAL SUBCUT PRN (18:10)
[2016-10-07] MEDS ORDERED: OXYTOCIN/NORMAL SALINE 1,000 ML IV PRN (18:10)
[2016-10-07] MEDS ORDERED: HYDROMORPHONE HCL INJ/PF 2 MG/ML AMPULE ONE (18:13)
[2016-10-07] MEDS ORDERED: KETOROLAC TROMETHAMINE INJ/PF 30 MG/1 ML SDV ONE (18:32)
[2016-10-07] MEDS ORDERED: ACETAMINOPHEN 100 ML IV ONE (18:37)
[2016-10-07] MEDS ORDERED: DOCUSATE SODIUM 100 MG CAPSULE PO ONE (19:00)
--- NOTE | 2016-10-07 19:29 | Delivery Summary ---
Del Sum A-C Datetime Report Generated by CPN: 10/07/2016 19:28 ADMISSION DATA Chief Complaint: Uterine Contractions Indication for Induction: Not Applicable Admission Impression: , Intrauterine ; Active Labor; Intact Membranes Admit Provider Comments: twins active labor. Discussed risks and benefits of vaginal delivery and c/s. Discussed possible need for c/s 2nd twin as well as possible version. betamethasone times one given. ancef one gram given to cover gbs or c/s. for epidural DELIVERY PERSONNEL Delivery Doctor:: Awilda Lizama MD Anesthesiologist:: Bean Couch MD PLATE STACKER HAND:: Ceasar Andrade CRNA Labor and Delivery Nurse:: Mary Jo Zafar RNintake nurse Nurse:: Jeny Dominguez RN Head Holder:: Dr. Reza Mo Nurse Practitioner:: SHAWN Alvarado Nursery Nurse:: Clara Wong RN Nursery Nurse:: Cristina Chan RN Student Observers:: TAMMI Gomez Student Oceanology Teacher/SAWMILLING OPERATOR: Taisha Lion, OSCAR Oceanology Teacher/SAWMILLING OPERATOR: Marck Farr CST MATERNAL INFORMATION Delivery Anesthesia: Epidural; General Medications After Delivery: Pitocin Drip 20 Units/1000ml NSS Estimated Blood Loss (ml): 1000 Maternal Complications: Abruptio Placenta; Hemorrhage Provider Comments: Twin A male vertex 1570g (3-7) ap 6/8 Twin B male Stat C/S footling breech wt 1820g Twin placentas with both noted to have approx 20% abruption delivered intact. normal anatomy LABOR SUMMARY EDC: 12/07/2016 00:00 No. Babies in Womb: 2 Attempted: No Labor Anesthesia: Epidural LABOR INFORMATION Reason for Induction: Not Applicable Onset of Labor: 10/07/2016 08:30 Complete Dilatation: 10/07/2016 15:52 Oxytocin: N/A Group B Beta Strep: unknown Antibiotics # of Doses: 1 Antibiotics Time of Last Dose: 1100 Name of Antibiotic Given: Ancef Steroids Given: Partial Course Reason Steroids Not Administered: Not Applicable MEMBRANES Membranes Rupture Method: Artificial Rupture of Membranes: 10/07/2016 15:37 Length of Rupture (hr): 0.67 Amniotic Fluid Color: Clear Amniotic Fluid Amount: Moderate Amniotic Fluid Odor: Normal STAGES OF LABOR Stage 1 hr: 7 Stage 1 min: 22 Stage 2 hr: 0 Stage 2 min: 25 Stage 3 hr: 0 Stage 3 min: 20 Total Time in Labor hr: 8 Total Time in Labor min: 7 VAGINAL DELIVERY Episiotomy: None Laceration Extension: N/A Laceration Type: None Laceration Repair: Not Applicable Sponge Count Correct: Yes CSECTION DELIVERY Primary Indication: Nonreassuring Status Secondary Indication: Breech Presentation CSection Urgency: Emergency CSection Incidence: Primary Labor: Labor Elective: Nonelective CSection Incision: Lower Uterine Transverse Sterilization Procedure: Ring and Clip Other Sterilization Procedure: filshie Uterine Closure: Double-layer closure BABY A INFORMATION Delivery Date/Time: 10/07/2016 16:17 Method of Delivery: Vaginal Born in Route : No : N/A Forceps: N/A Vacuum Extraction: N/A Shoulder Dystocia : No PRESENTATION/POSITION BABY A Presentation: Cephalic Cephalic Presentation: Vertex Vertex Position: Left Occipital Anterior Breech Presentation: N/A PLACENTA INFORMATION BABY A Placenta Delivery Time : 10/07/2016 16:37 Placenta Method of Delivery: Manual Removal Placenta Status: Delivered SCORES BABY A Heart Rate 1 min: >100 bpm Resp Effort 1 min: Good Cry Reflex Irritability 1 min: Grimace Muscle Tone 1 min: Some Flexion of Extremities Color 1 min: Blue/Pale Resuscitation Effort 1 min: Tactile Stimulation SCORE 1 MIN: 6 Heart Rate 5 min: >100 bpm Resp Effort 5 min: Good Cry Reflex Irritability 5 min: Grimace Muscle Tone 5 min: Some Flexion of Extremities Color 5 min: Completely Waggoner SCORE 5 MIN: 8 INFANT INFORMATION BABY A Gestational Age at Delivery: 31.2 Gestational Status: - <34 Weeks Outcome : Liveborn Condition : Stable Sex: Male IDENTIFICATION BABY A Infant Verification Date/Time: 10/07/2016 11:02 ID Band Number: [id number] Mother's Name Verified: Yes RN Verifying Infant: Nigel Werner RN/R Snoa RN WEIGHT/LENGTH BABY A Birthweight (gm): 1570 Infant Weight (lb): 3 Infant Weight (oz): 7 Infant Length (in): 17.00 Infant Length (cm): 43.18 CORD INFORMATION BABY A No. Cord Vessels: 3 Nuchal Cord : Around Neck x1, Loose Cord Blood Taken: Yes-For Storage (Mom's Blood type +) Suction: Mouth; Nose ASSESSMENT BABY A Infant Complications: Other Infant Complications- Other: Physical Findings at Delivery: Within Normal Limits Infant Respirations: Appears Normal Skin to Skin: No Care By: E. Cal[place], RN and D. Matter, [employer] AUTHORING SPECIALIST Transferred To: NICU (Annotations: Data stored by [facility] on behalf of user) BABY B INFORMATION Infant Delivery Date/Time: 10/07/2016 16:36 Method of Delivery : Born in Route : No : N/A Forceps : N/A Vacuum Extraction: N/A Shoulder Dystocia : No SHOULDER DYSTOCIA BABY B Infant Delivery Date/Time: 10/07/2016 16:36 PRESENTATION/POSITION BABY B Presentation : Breech Cephalic Position : N/A Breech Position: Double Footling ROM/PLACENTA INFO BABY B Rupture of Membranes: 10/07/2016 16:36 Length of Rupture (hr): 0.00 Placenta Delivery Time : 10/07/2016 16:37 Placenta Method of Delivery: Manual Removal Placental Status : Delivered SCORES BABY B Heart Rate 1 min: >100 bpm Resp Effort 1 min: Absent Reflex Irritability 1 min: No Response Muscle Tone 1 min: Flaccid Color 1 min: Blue/Pale Resuscitation Effort 1 min: Tactile Stimulation; PPV/NCPAP SCORE 1 MIN: 2 Heart Rate 5 min: >100 bpm Resp Effort 5 min: Slow, Irregular Reflex Irritability 5 min: Grimace Muscle Tone 5 min: Some Flexion of Extremities Color 5 min: Body Waggoner, Extremities Blue Resuscitation Effort 5 min: Tactile Stimulation; PPV/NCPAP SCORE 5 MIN: 6 Heart Rate 10 min: >100 bpm Resp Effort 10 min: Slow, Irregular Reflex Irritability 10 min: Cough or Sneeze or Pulls Away Muscle Tone 10 min: Some Flexion of Extremities Color 10 min: Completely Waggoner Resuscitation Effort 10 min: Tactile Stimulation; PPV/NCPAP; Endotracheal Intubation SCORE 10 MIN: 8 INFORMATION BABY B Gestational Age at Delivery: 31.2 Gestational Status : - <34 Weeks Infant Outcome : Liveborn Infant Condition : Fair Sex : Male IDENTIFICATION BABY B Verification Date/Time: 10/07/2016 11:03 ID Band Number : [id number] Mother's Name Verified: Yes RN Verifying : B Baidy RN/R Andrahemorenaka RN WEIGHT/LENGTH BABY B Birthweight (gm): 1820 Infant Weight (lb) : 4 Weight (oz): 0 Infant Length (in): 17.00 Infant Length (cm): 43.18 CORD INFORMATION BABY B No. Cord Vessels : 3 Nuchal Cord : N/A Cord Blood Taken : Yes-For Storage (Mom's Blood Type +) Suction : Mouth; Nose ASSESSMENT BABY B Complications : Extended Bradycardia; Other Complications- Other: Physical Findings at Delivery: Within Normal Limits Skin to Skin: No Head Holder/ALS Called : Yes Infant Care By : Mami Wong RN and Dr. Mo Transfer To: NICU SIGNATURES Signature: with User ID: [email or web address]
--- NOTE | 2016-10-07 19:30 | Admission Physical ---
Datetime Report Generated by [facility]: 10/07/2016 19:30 CURRENT ADMISSION Hx Assessment: The History has been Reviewed and is Current Chief Complaint: Uterine Contractions Indication for Induction: Not Applicable Admit Plan: Admit to Unit; Initiate Labor Protocol (Annotations: Data stored by [facility] on behalf of user) ALLERGIES Medication Allergies: No Medication Allergies: No Known Allergies (10/07/2016) Latex: No Latex Allergies Food Allergies: None Environmental Allergies: None OBSTETRICAL HISTORY EDC: 12/07/2016 00:00 : 5 Para: 1 Term: 1 : 0 SAB: 0 IAB: 2 Ectopic: 0 Livin Cesareans: 0 VBACs: 0 Multiple Births: 0 Gestational Diabetes: No Rh Sensitization: No Incompetent Cervix: No KENDRA: No Infertility: No ART Treatment: No Uterine Anomaly: No IUGR: No Hx Previous C/S: No Macrosomia: No Hx Loss/Stillborn: No PIH: No Hx : No Placenta Previa/Abruption: No Depression/PP Depression: No PTL/PROM: No Post Hemorrhage: No Current Procedures: Ultrasound Obstetrical History Comments: G1 - at 41 wks (2009), shoulder dystocia G2 - EAB at 18 wks (2011) G3 - EAB at 18 wks (2013) G4 - EAB at 18 wks (2015) G5 - current , late PNC, twin gestation SEE RECORDS Alcohol: No Marijuana : Yes Cocaine: Yes Other Illicit Drugs: No Cigarettes: Former Smoker. [id number] MEDICAL HISTORY Diabetes: No Blood Transfusion: No Pulmonary Disease (Asthma, TB): No Breast Disease: No Hypertension: No Scout Leaser Surgery: No Heart Disease: No Hosp/Surgery: Yes Autoimmune Disorder: No Anesthetic Complications: No Kidney Disease: No Abnormal Pap Smear: No Neuro/Epilepsy: No Psychiatric Disorders: No Other Medical Diseases: No Hepatitis/Liver Disease: No Significant Family History: No Varicosities/Phlebitis: No Trauma/Violence : No Thyroid Dysfunction: No Medical History Comments: Childbirth, tonsilectomy age 6, EAB/D_C 2011 and 2015 INFECTIOUS HISTORY Gonorrhea: No Genital Herpes: No Chlamydia: Yes Tuberculosis: No Syphilis: No Hepatitis: No HIV/AIDS Exposure: No Rash or Viral Illness: No HPV: No Infectious History Comments: chlamydia + 09/21/16 PHYSICAL EXAM General: Normal HEENT: Deferred Neurologic: Deferred Thyroid: Deferred Heart: Normal Lungs: Normal Breast: Deferred Back: Deferred Abdomen: Normal Genitourinary Exam: Normal Extremities: Normal DTRs: Normal Pelvic Type: Adequate Vital Signs: Reviewed; Within Normal Limits VAGINAL EXAM Contraction Comments: q2-3 MEMBRANES Membranes: Intact FETUS A EGA: 31.2 FHR- Baseline: 140 Variability: Moderate 6-25bpm Accelerations: 15X15 Decelerations: None FHR Category: Category I Presentation: Vertex Admit Comment: twins active labor. Discussed risks and benefits of vaginal delivery and c/s. Discussed possible need for c/s 2nd twin as well as possible version. betamethasone times one given. ancef one gram given to cover gbs or c/s. for epidural FETUS B Monitoring: External US Variability: Moderate 6-25bpm Accelerations: 15X15 Decelerations: None FHR Category: Category I Presentation: Transverse PLANS FOR LABOR AND DELIVERY Labor and Delivery: None Pain Management: Epidural Feeding Preference: Formula Benefit of Breast Feed Discussed: Yes Circumcision: Yes INFORMED CONSENT Signature: with User ID: [email or web address]
[2016-10-07] MEDS: OXYCODONE-ACETAMINOPHEN 5-325 MG TABLET PO PRN (22:36)
[2016-10-07] MEDS ORDERED: CEFAZOLIN INJ 1 GM VIAL ONE (23:42)
[2016-10-08] MEDS ORDERED: CEFAZOLIN 1 GM/D5W RTU 1 GM/50 ML RTUPB IV SCH
[2016-10-08] MEDS: CEFAZOLIN 1 GM/D5W RTU 1 GM/50 ML RTUPB IV SCH ×2 (00:03→09:26)
[2016-10-08] MEDS: KETOROLAC TROMETHAMINE INJ/PF 30 MG/1 ML SDV IV SCH ×3 (02:05→14:14)
[2016-10-08] MEDS ORDERED: CEFAZOLIN INJ 1 GM VIAL ONE (03:10)
[2016-10-08 06:36] LABS: HEMATOCRIT 27.1 % (36.0-47.0); HEMOGLOBIN 9.1 g/dL (12.0-15.5); HGB HCT DIFFERENCE 0.2; MEAN CORPUSCULAR HEMOGLOBIN 32.3 pg (27.0-33.4); MEAN CORPUSCULAR HGB CONC 33.7 g/dL (32.0-36.0); MEAN CORPUSCULAR VOLUME 96 fl (80-97); RED BLOOD COUNT 2.83 10^6/uL (3.72-5.28); RED CELL DISTRIBUTION WIDTH 13.8 % (11.5-14.0); WHITE BLOOD COUNT 16.5 10^3/uL (4.0-10.5)
--- NOTE | 2016-10-08 07:01 | L&D Flow Sheet ---
LD Flowsheet Datetime Report Generated by CPN: 10/08/2016 07:00 Datetime: 10/07/2016 19:03 Pulse: 67 (QS system process) SpO2 (%): 100 (QS system process)
--- NOTE | 2016-10-08 09:23 | PDOC PROGRESS REPORT ---
Subjective-OB Subjective: Post Delivery Day: 26 year old. Denies any needs at this time Physical Exam (OB) Vital Signs: Temp Pulse Resp BP Pulse Ox 97.9 F 68 16 104/60 100 10/08/16 08:35 10/08/16 08:35 10/08/16 08:35 10/08/16 08:35 10/08/16 08:35 Intake & Output 10/07/16 10/08/16 10/09/16 06:59 06:59 06:59 Intake Total 1500 Output Total 675 Balance 825 Weight 70.9 kg - Dressing Removed: Yes Incision: Dressing, Well Approximated - Lochia Lochia Amount: Small 10-25 ml Lochia Color: Rubra/Red - Abdomen Description: Soft, Round Hernia Present: No Bowel Sounds: Normoactive Flatus Presence: Absent Stool: No Fundal Description: Firm Fundal Height: u/u - u/2 Objective-Diagnostic Laboratory: 10/08/16 06:28 10/07/16 10/07/16 10/07/16 10:59 10:59 11:05 WBC 8.7 RBC 2.92 L Hgb 9.5 L Hct 27.9 L MCV 96 MCH 32.4 MCHC 33.9 RDW 13.8 Plt Count 201 Seg Neutrophils % 80.4 H Lymphocytes % 14.1 Monocytes % 5.0 Eosinophils % 0.1 Basophils % 0.4 Absolute Neutrophils 7.0 Absolute Lymphocytes 1.2 Absolute Monocytes 0.4 Absolute Eosinophils 0.0 Absolute Basophils 0.0 Carbonic Acid HCO3/H2CO3 Ratio ABG pH ABG pCO2 ABG pO2 ABG HCO3 ABG O2 Saturation ABG Base Excess FiO2 Urine Color YELLOW Urine Appearance CLEAR Urine pH 8.0 Ur Specific [place] 1.005 Urine Protein NEGATIVE Urine Glucose (UA) NEGATIVE Urine Ketones 20 H Urine Blood LARGE H Urine Nitrite NEGATIVE Ur Leukocyte Esterase SMALL H Urine WBC (Auto) 5 Urine RBC (Auto) 1 Blood Type A POSITIVE Antibody Screen NEGATIVE 10/07/16 10/08/16 16:37 06:28 WBC 16.5 H RBC 2.83 L Hgb 9.1 L Hct 27.1 L MCV 96 MCH 32.3 MCHC 33.7 RDW 13.8 Plt Count 292 Seg Neutrophils % Lymphocytes % Monocytes % Eosinophils % Basophils % Absolute Neutrophils Absolute Lymphocytes Absolute Monocytes Absolute Eosinophils Absolute Basophils Carbonic Acid 1.44 H HCO3/H2CO3 Ratio 14:1 ABG pH 7.25 L ABG pCO2 48.0 H ABG pO2 14.6 L* ABG HCO3 20.7 ABG O2 Saturation ABG Base Excess -6.7 FiO2 CORD BLOOD Urine Color Urine Appearance Urine pH Ur Specific [place] Urine Protein Urine Glucose (UA) Urine Ketones Urine Blood Urine Nitrite Ur Leukocyte Esterase Urine WBC (Auto) Urine RBC (Auto) Blood Type Antibody Screen
[2016-10-08] MEDS: DOCUSATE SODIUM 100 MG CAPSULE PO SCH ×2 (09:24→17:45)
[2016-10-08] MEDS: PRENATAL VITAMIN W-O CA NO5/FE FUMARATE/FA CAPSULE PO SCH (09:26)
[2016-10-08] MEDS: OXYCODONE-ACETAMINOPHEN 5-325 MG TABLET PO PRN ×3 (12:37→21:58)
[2016-10-08] MEDS: CEFAZOLIN SODIUM 1 GM in DEXTROSE 5%-WATER 50 ML IV SCH ×2 (14:12→21:02)
[2016-10-08] MEDS: IBUPROFEN 800 MG TABLET PO SCH ×2 (17:45→23:44)
--- NOTE | 2016-10-08 18:01 | L&D Current Admission ---
Current Admit Datetime Report Generated by CPN: 10/08/2016 18:00 ADMISSION INFORMATION Current Admit Date/Time: 10/07/2016 10:45 (10/07/2016 10:45:Mary Magallanes RN) Reason for Admission: Onset of Labor (10/07/2016 10:45:Mary Magallanes RN) Chief Complaint: Contractions; Vaginal Bleeding (10/07/2016 10:12:Mary Jo Zafar RN) Medications During : Ferrous Sulfate (Iron); Vitamin (10/07/2016 10:45:Mary Magallanes RN) EGA per Dates: 31.2 (10/07/2016 10:45:QS system process) Method of Arrival: Stretcher (10/07/2016 10:45:Mary Magallanes RN) Admitted From: Home (10/07/2016 10:45:Mary Magallanes RN) Reason for Induction: Not Applicable (10/07/2016 10:45:Mary Magallanes RN) Records Available: Yes (10/07/2016 10:45:Mary Magallanes RN) General Admission Information: Reviewed; Updated; Confirmed (10/07/2016 10:45:Mary Magallanes RN) General Admission Reviewed By: Manolo Magallanes RN (10/07/2016 10:45:Mary Magallanes RN) BELONGINGS/ADVANCED DIRECTIVES Valuables/Personal Effects: Cell Phone (10/07/2016 10:45:Mary Magallanes RN) Other Belongings: See Belongins sheet (10/07/2016 10:45:Mary Magallanes RN) Disposition of Belongings: Kept with Patient (10/07/2016 10:45:Mray Magallanes RN) Advance Direct for Healthcare: No, and Wants No Information (10/07/2016 10:45:Mary Magallanes RN) Durable Power of Multiple Tube Winding Machine Operator: No (10/07/2016 10:45:Mary Magallanes RN) Living Will: No (10/07/2016 10:45:Mary Magallanes RN) Organ Donor: No (10/07/2016 10:45:Mary Magallanes RN) Pt Rights Information Given: Yes (10/07/2016 10:45:Mary Magallanes RN) Pt Understands Pt Rights: Yes (10/07/2016 10:45:Mary Magallanes RN) LEARNING ASSESSMENT Knowledge Level: Understands L_D Process; Understands Care Activities; Had Pre-Hospital Education; Understands Diagnosis (10/07/2016 10:45:Mary Magallanes RN) Barriers to Learning: None (10/07/2016 10:45:Mary Magallanes RN) Learning Readiness: Motivated (10/07/2016 10:45:Mary Magallanes RN) Learns Best By: 1 to 1 Instruction (10/07/2016 10:45:Mary Magallanes RN) Learning Needs: Labor and Delivery Process; Pain Management; Symptoms to Report; Treatment Plan; Medication; Diagnosis; Nutrition; Equipment; Care; Community Resources (10/07/2016 10:45:Mary Magallanes RN) DOMESTIC VIOLANCE SCREENING Dom Viol Threatened/Hurt: No (10/07/2016 10:45:Mary Magallanes RN) Hx of Abuse/Neglect past 2yrs: No (10/07/2016 10:45:Mary Magallanes RN) Feel Unsafe Going Home: No (10/07/2016 10:45:Mary Magallanes RN) Addt'l Observ Indicating Abuse: No (10/07/2016 10:45:Mary Magallanes RN) Reason Unable to Complete Screen: N/A, Screen Completed (10/07/2016 10:45:Mary Magallanes RN) Considered Personal Harm/Suicide: No (10/07/2016 10:45:Mary Magallanes RN) NUTRITIONAL/FUNCTIONAL SCREENING Problem with Appetite >5 Days: No (10/07/2016 10:45:Mary Magallanes RN) Chew/Swallow Difficulties: No (10/07/2016 10:45:Mary Magallanes RN) Inappropriate Wt Gain/Loss: No (10/07/2016 10:45:Mary Magallanes RN) Presence Skin Breakdown/Ulcer: No (10/07/2016 10:45:Mary Magallanes RN) Special Diet: No (10/07/2016 10:45:Mary Magallanes RN) Pt Requests Family Therapist Visit: No (10/07/2016 10:45:Mary Magallanes RN) Hx of Any of the Following?: N/A (10/07/2016 10:45:Mary Magallanes RN) New Diagnosis of: N/A (10/07/2016 10:45:Mary Magallanes RN) Requires Assist w/Ambulation: No (10/07/2016 10:45:Mary Magallanes RN) Uses Assist Device to Ambulate: No (10/07/2016 10:45:Mary Magallanes RN) Pt Requires Help w/ADL's: No (10/07/2016 10:45:Mary Magallanes RN)
--- NOTE | 2016-10-08 18:01 | L&D General Admission ---
General Admit Datetime Report Generated by CPN: 10/08/2016 18:00 INFORMATION Patient Age: 26 (10/07/2016 10:25:QS system process) EDC: 12/07/2016 00:00 (10/07/2016 10:27:Hazel Werner RN) : 5 (10/07/2016 10:27:Mary Jo Zafar RN) Para: 1 (10/07/2016 10:27:Hazel Werner RN) Term: 1 (10/07/2016 10:27:Hazel Werner RN) : 0 (10/07/2016 10:27:Hazel Werner RN) Spontaneous Abortions: 0 (10/07/2016 10:27:Hazel Werner RN) Induced Abortions: 2 (10/07/2016 10:27:Hazel Werner RN) Livin (10/07/2016 10:27:Hazel Werner RN) Cesareans: 0 (10/07/2016 10:27:Hazel Werner RN) VBACs: 0 (10/07/2016 10:27:Hazel Werner RN) Ectopic: 0 (10/07/2016 10:27:Hazel Werner RN) Multiple Births: 0 (10/07/2016 10:27:Hazel Werner RN) Baby, Number in Womb: 2 (10/07/2016 10:27:Hazel Werner RN) CARE Primary Facility Mechanic: [facility] (10/07/2016 10:27:Hazel Werner RN) Month of 1st Visit: September 2016 (10/07/2016 10:27:Mary Jo Zafar RN) Adequate Care: No (10/07/2016 10:27:Mary Jo Zafar RN) Prepregnancy Weight (lb): 156 (10/07/2016 10:27:Hazel Werner RN) Prepregnancy Weight (kg): 70.9 (10/07/2016 10:27:QS system process) Height (in): 63 (10/08/2016 12:28:QS system process) ALLERGIES Medication Allergy: No (10/07/2016 10:27:Hazel Werner RN) Medication Allergies: No Known Allergies (10/07/2016) (10/07/2016 10:51:QS system process) Latex Allergy: No Latex Allergies (10/07/2016 10:27:Mary Jo Zafar RN) Food Allergies: None (10/07/2016 10:27:Mary Jo Zafar RN) Environmental Allergies: None (10/07/2016 10:27:Mary Jo Zafar RN) COMMUNICATION Primary Language: Kyrgyz (10/07/2016 10:27:Hazel Werner RN) Medical Tx Preferred Language: Kyrgyz (10/07/2016 10:27:Hazel Werner RN) Communication Barrier(s): None (10/07/2016 10:27:Hazel Werner RN) DEMOGRAPHICS Address: [address] [place] [id number] (10/07/2016 10:25:QS system process) Zipcode: [address] (10/07/2016 10:25:QS system process) Home (10/07/2016 10:25:QS system process) SSN: [id number] (10/07/2016 10:25:QS system process) Next of Kin Name: KASHIF PATEL (10/07/2016 10:25:QS system process) Next of Kin (10/07/2016 10:25:QS system process) Next of Kin Relationship: MO (10/07/2016 10:25:QS system process) Date of : 1990 (10/07/2016 10:25:QS system process) Marital Status: Legally (10/07/2016 10:25:QS system process) Sex: Female (10/07/2016 10:25:QS system process) Race: Other (10/07/2016 10:25:QS system process) Ethnicity: or (10/07/2016 10:25:QS system process) Adventism: None (10/07/2016 10:25:QS system process) DRUG AND ALCOHOL USE Alcohol: No (10/07/2016 10::Mary Jo Zafar RN) Cigarettes: Former Smoker. [id number] (10/07/2016 10::aHzel Werner RN) Marijuana: Yes (10/07/2016 10::Hazel Werner RN) Cocaine: Yes (10/07/2016 10::Mary Jo Zafar RN) Other Illicit Drugs: No (10/07/2016 10::Hazel Werner RN) VACCINE HISTORY Influenza Vaccine: Yes (10/07/2016 10:27:Mary Jo Zafar RN) Pneumococcal Vaccine: No (10/07/2016 10:27:Mary Jo Zafar RN) Tetanus Vaccine: No (10/07/2016 10:27:Mary Jo Zafar RN) Tdap Vaccine: No (10/07/2016 10:27:Mary Jo Zafar RN) Hepatitis B Vaccine: No (10/07/2016 10:27:Mary Jo Zafar RN) Analytical Lab Technician: [facility] (10/07/2016 10:27:Mary Jo Zafar RN) Feeding Preference: Formula (10/07/2016 10:27:Mary Jo Zafar RN) Benefit of Breast Feed Discussed: Yes (10/07/2016 10:27:Mary Jo Zafar RN) Circumcision: Yes (10/07/2016 10:27:Mary Jo Zafar RN) Classes Attended: No (10/07/2016 10:27:Mary Jo Zafar RN) Tubal Ligation: Yes (10/07/2016 10:27:Mary Jo Zafar RN) Tubal Authorization Signed: Yes (10/07/2016 10:27:Mary Jo Zafar RN) Consent: N/A (10/07/2016 10:27:Mary Jo Zafar RN) Consent Signed: Yes (10/07/2016 10:27:Mary Jo Zafar RN) Pain Management Plans: Epidural (10/07/2016 10:27:Mary Jo Zafar RN) Plans for Labor and Delivery: None (10/07/2016 10:27:Mary Jo Zafar RN) Support Person: [facility] (10/07/2016 10:27:Mary Jo Zafar RN) Support Person Relationship: Significant Other (10/07/2016 10:27:Mary Jo Zafar RN) Cultural/Spritual Practice: No (10/07/2016 10:27:Mary Jo Zafar RN) Spir/Cult Dietary Needs: No (10/07/2016 10:27:Mary Jo Zafar RN) LIVING SITUATION/DISCHARGE PLAN Living Arrangements: Apartment (10/07/2016 10:27:Mary Jo Zafar RN) Adequate Access to:: Electric; Heat; Refrigeration; Plumbing/Running water; Phone; Transportation (10/07/2016 10:27:Mary Jo Zafar RN) WIC Program: Yes (10/07/2016 10:27:Mary Jo Zafar RN) Discharge Hand Cloth Folder Person: [facility] (10/07/2016 10:27:Mary Jo Zafar RN) Person to Help after Discharge: [facility] (10/07/2016 10:27:Mary Jo Zafar RN) Currently Using Commun Resources: Yes (10/07/2016 10:27:Mary Jo Zafar RN) Specify Current Resource Used: Medicaid (10/07/2016 10:27:Mary Jo Zafar RN) Outside Agency/Travel Counselor: Yes (10/07/2016 10:27:Mary Jo Zafar RN) Specify Agency/ Travel Counselor: unsure (10/07/2016 10:27:Mary Jo Zafar RN) Adoption Requested: No (10/07/2016 10:27:Mary Jo Zafar RN) Pt Contact w/[facility] : N/A (10/07/2016 10:27:Mary Jo Zafar RN) LABS Blood Type: A Positive (10/07/2016 10:27:Mary Jo Zafar RN) Antibody Screen: negative (10/07/2016 10:27:Hazel Werner RN) Hemoglobin: 9.1 L (10/08/2016 06:28:QS system process) Hematocrit: 27.1 L (10/08/2016 06:28:QS system process) MCV: 96 (10/08/2016 06:28:QS system process) Group Beta Strep: unknown (10/07/2016 10:27:Hazel Werner RN) RPR/VDRL: Nonreactive (10/07/2016 10:27:Hazel Werner RN) HIV Exposure Test: Negative (10/07/2016 10:27:Hazel Werner RN) Hepatitis B: Negative (10/07/2016 10:27:Mary Jo Zafar RN) Rubella: Immune (10/07/2016 10:27:Mary Jo Zafar RN) OB/PREVIOUS HISTORY Previous Procedures: Ultrasound; NST (10/07/2016 10:27:Mary Jo Zafar RN) Current Procedures: Ultrasound (10/07/2016 10:27:Mary Jo Zafar RN) History of Previous : No (10/07/2016 10:27:Mary Jo Zafar RN) History of Gestational Diabetes: No (10/07/2016 10:27:Mary Jo Zafar RN) History of PIH: No (10/07/2016 10:27:Mary Jo Zafar RN) History of Incompetent Cervix: No (10/07/2016 10:27:Mary Jo Zafar RN) History of Placenta Previa/Abrup: No (10/07/2016 10:27:Mary Jo Zafar RN) History of Macrosomia: No (10/07/2016 10:27:Mary Jo Zafar RN) History of IUGR: No (10/07/2016 10:27:Mary Jo Zafar RN) History of Hemorrhage: No (10/07/2016 10:27:Mary Jo Zafar RN) History of Loss/Stillborn: No (10/07/2016 10:27:Mary Jo Zafar RN) History of : No (10/07/2016 10:27:Mary Jo Zafar RN) History of D (Rh) Sensitization: No (10/07/2016 10:27:Mary Jo Zafar RN) History Recurrent Loss/Stillborn: No (10/07/2016 10:27:Mary Jo Zafar RN) History Depression/PP Depression: No (10/07/2016 10:27:Mary Jo Zafar RN) History of Uterine Anomaly/KENDRA: No (10/07/2016 10:27:Mary Jo Zafar RN) History of Infertility: No (10/07/2016 10:27:Mary Jo Zafar RN) History of ART Treatment: No (10/07/2016 10:27:Mary Jo Zafar RN) History of KENDRA: No (10/07/2016 10:27:Mary Jo Zafar RN) Comments Obstetrical History: G1 - at 41 wks (2009), shoulder dystocia G2 - EAB at 18 wks (2011) G3 - EAB at 18 wks (2013) G4 - EAB at 18 wks (2015) G5 - current , late PNC, twin gestation (10/07/2016 10:27:Mary Jo Zafar RN) MEDICAL HISTORY Med Hx Diabetes: No (10/07/2016 10:27:Mary Jo Zafar RN) Med Hx Hypertension: No (10/07/2016 10:27:Mary Jo Zafar RN) Med Hx Heart Disease: No (10/07/2016 10:27:Mary Jo Zafar RN) Med Hx Autoimmune Disorder: No (10/07/2016 10:27:Mary Jo Zafar RN) Med Hx Kidney Disease/UTI: No (10/07/2016 10:27:Mary Jo Zafar RN) Med Hx Neurologic/Epilepsy: No (10/07/2016 10:27:Mary Jo Zafar RN) Med Hx Psychiatric Disorders: No (10/07/2016 10:27:Mary Jo Zafar RN) Med Hx Hepatitis/Liver Disease: No (10/07/2016 10:27:Mary Jo Zafar RN) Med Hx Varicosities/Phlebitis: No (10/07/2016 10:27:Mary Jo Zafar RN) Med Hx Thyroid Dysfunction: No (10/07/2016 10:27:Mary Jo Zafar RN) Med Hx Trauma/Violence: No (10/07/2016 10:27:Mary Jo Zafar RN) Med Hx Blood Transfusion: No (10/07/2016 10:27:Mary Jo Zafar RN) Med Hx Pulmonary (Asthma,TB): No (10/07/2016 10:27:Mary Jo Zafar RN) Med Hx Breast: No (10/07/2016 10:27:Mary Jo Zafar RN) Med Hx UNDERWRITING SALES REPRESENTATIVE Surgery: No (10/07/2016 10:27:Mary Jo Zafar RN) Med Hx Hospitalization/Surgery: Yes (10/07/2016 10:27:Hazel Werner RN) Med Hx Anesthetic Complications: No (10/07/2016 10:27:Mary Jo Zafar RN) Med Hx Abnormal Pap Smear: No (10/07/2016 10:27:Mary Jo Zafar RN) Other Medical Diseases: No (10/07/2016 10:27:Mary Jo Zafar RN) Med Hx Significant Family Hx: No (10/07/2016 10:27:Mary Jo Zafar RN) Details of Med/Surg Hx: Childbirth, tonsilectomy age 6, EAB/D_C 2011 and 2015 (10/07/2016 10:27:Hazel Werner RN) INFECTIOUS HISTORY Inf Hx Gonorrhea: No (10/07/2016 10:27:Mary Jo Zafar RN) Inf Hx Chlamydia: Yes (10/07/2016 10:27:Hazel Werner RN) Inf Hx Syphilis: No (10/07/2016 10:27:Mary Jo Zafar RN) Inf Hx HIV/AIDS: No (10/07/2016 10:27:Mary Jo Zafar RN) Inf Hx Human Papilloma Virus: No (10/07/2016 10:27:Mary Jo Zafar RN) Inf Hx Pt/Partner Genital Herpes: No (10/07/2016 10:27:Mary Jo Zafar RN) Inf Hx Tuberculosis/Exposure: No (10/07/2016 10:27:Mary Jo Zafar RN) Inf Hx Hepatitis B,C: No (10/07/2016 10:27:Mary Jo Zafar RN) Inf Hx Rash or Viral Illness: No (10/07/2016 10:27:Mary Jo Zafar RN) Details of Infectious Hx: chlamydia + 09/21/16 (10/07/2016 10:27:Hazel Werner RN) GENETIC HISTORY Gen Hx Age >=35 at I[place]: No (10/07/2016 10:27:Mary Jo Zafar RN) Gen Hx Thalassemia: No (10/07/2016 10:27:Mary Jo Zafar RN) Gen Hx Congenital Heart Defect: No (10/07/2016 10:27:Mary Jo Zafar RN) Gen Hx Neural Tube Defect: No (10/07/2016 10:27:Mary Jo Zafar RN) Gen Hx Down's Syndrome: No (10/07/2016 10:27:Mary Jo Zafar RN) Gen Hx Leo-Sachs: No (10/07/2016 10:27:Mary Jo Zafar RN) Gen Hx Angelica: No (10/07/2016 10:27:Mary oJ Zafar RN) Gen Hx Familial Dysautonomia: No (10/07/2016 10:27:Mary Jo Zafar RN) Gen Hx Sickle Cell Disease/Trait: No (10/07/2016 10:27:Mar yJo Zafar RN) Gen Hx Hemophilia/Blood Disorder: No (10/07/2016 10:27:Mary Jo Zafar RN) Gen Hx Muscular Dystrophy: No (10/07/2016 10:27:Mary Jo Zafar RN) Gen Hx Cystic Fibrosis: No (10/07/2016 10:27:Mary Jo Zafar RN) Gen Hx Huntingtons Chorea: No (10/07/2016 10:27:Mary Jo Zafar RN) Gen Hx Mental Retardation/Autism: No (10/07/2016 10:27:Mary Jo Zafar RN) Gen Hx Tested for Fragile X: No (10/07/2016 10:27:Mary Jo Zafar RN) Gen Hx Other Inher/Chromosomal: No (10/07/2016 10:27:Mary Jo Zafar RN) Gen Hx Maternal Metabolic DO: No (10/07/2016 10:27:Mary Jo Zafar RN) Gen Hx Pt Father or FOB Defect: No (10/07/2016 10:27:Mary Jo Zafar RN) Gen Hx Other Genetic History: No (10/07/2016 10:27:Mary Jo Zafar RN) Gen Hx Drugs/Meds since LMP: No (10/07/2016 10:27:Mary Jo Zafar RN)
--- NOTE | 2016-10-08 18:16 | L&D Care Plan ---
LD CARE PLANS Datetime Report Generated by CPN: 10/08/2016 18:15 Datetime: 10/07/2016 10:51 Pain State: Risk For (Mary Magallanes RN) Related To: Labor and Delivery Process; Complication(s) of ; Disease Process; Treatment and Procedures (Mary Magallanes RN) Goal(s): Patients Pain will be Assessed and Managed; Patient will Verbalize Adequate Relief of Pain or the Ability to [place] with Current Pain (Mary Magallanes RN) Interventions: Assess Pain Severity on Scale of 0 (None) to 5 (Severe); Assess Type, Location and Intensity of Pain Each Time Client Reports Discomfort and Notify Provider if Unusal Pain Develops; Encourage Proper Breathing and Relaxation Techniques; Offer Alternatives Such as Repositioning, Calm Environment, Massages, Diversional Activities, Ice Pack, Splinting, and Ambulation; Administer Analgesics as Ordered; Assist with Epidural Placement as Appropriate; Evaluate Therapeutic Effectiveness of Medication and Treatments (Mary Magallanes RN) Outcome: Patient will Report Absence or Relief of Pain Consistent with Established Pain Goal (Mary Magallanes RN) Status: Ongoing (Mary Magallanes RN) Outcome: Patient will have a Decrease in Signs and Symptoms of Discomfort (Mary Magallanes RN) Status: Ongoing (Mary Magallanes RN) Outcome: Pain will be Controlled During Procedures (Mary Magallanes RN) Status: Ongoing (Mary Magallanes RN) Anxiety State: Risk For (Mary Magallanes RN) Related To: Labor and Delivery Process; Surgical Procedure; Perceived or Actual Threat to ; Fear of Unknown; Situational Crisis; Medical Interventions; Significant Life Event (Mary Magallanes RN) Goal(s): Patient will have Decreased Anxiety and be able to Function at Acceptable Levels (Mary Magallanes RN) Interventions: Assess Verbal and Nonverbal Behavioral Indicators of Anxiety; Assist Patient to Identify and Verbalize Symptoms of Anxiety; Identify and Demonstrate Techniques to Control Anxiety; Assist Patient with Coping Mechanisms to Manage Anxiety; Provide Theraputic Touch for the Patient; Explain to Patient, Using a Calm Reassuring Approach and Nonmedical Terms, All Activities, Procedures, and Concerns; Instruct Patient and Family about Post Discharge Care, Limitations, Symptoms to Report and Resources Available (Mary Magallanes RN) Outcome: Patient will Identify, Verbalize and Demonstrate Techniques to Control Anxiety (Mary Magallanes RN) Status: Ongoing (Mary Magallanes RN) Outcome: Patient's Posture, Facial Expressions, Gestures and Activity Level will Reflect Decreased Anxiety (Mary Magallanes RN) Status: Ongoing (Mary Magallanes RN) Outcome: Patient will Verbalize a Sense of Control and/or Acceptance of the Situation (Mary Magallanes RN) Status: Ongoing (Mary Magallanes RN) Outcome: Patient will Identify and Utilize Support Person (Mary Magallanes RN) Status: Ongoing (Mary Magallanes RN) Knowledge Deficit State: Risk For (Mary Magallanse RN) Related To: Labor and Delivery Process; Surgical Procedures; Treatment and Procedures; Impending Alterations in Family Dynamics; Feeding and Care; Community Resources and Available Support Mechanisms (Mary Magallanes RN) Goal(s): Patient will Accurately Verbalize Understanding of Plan of Care and Treatment; Patient and Family will Accurately Verbalize Understanding of the Disease Process (Mary Magallanes RN) Interventions: Assess Motivation and Willingness of Patient/Family to Learn; Assess Preferred Learning Mode: One to One Instruction, Reading, Videos, Group Discussion or Demonstration; Assess Barriers to Learning: Pain, Emotional State, Language Barrier, Cognitive Impairment, Visual or Hearing Deficits; Assess Patient and Family Knowledge of Disease Process, Medications and Treatment; Discuss Therapy and/or Treatment Options, Describe Rationale Behind Management, Therapy and Treatment Recommendations; Instruct Patient and Family on Signs and Symptoms to Report; Instruct Patient and Family on Medication Effects and Side Effects; Provide Appropriate and Timely Education Using Multiple Techniques; Provide Patient and Family with Support Group Information and Resources; Give Clear and Thorough Explanations and Demonstrations (Mary Magallanes RN) Outcome: Patient and Family will Verbalize Understanding of Condition, Treatment and Signs and Symptoms to Report (Mary Magallanes RN) Status: Ongoing (Mary Magallanes RN) Outcome: Patient will Identify Perceived Learning Needs and Express Motivation to Learn (Mary Magallanes RN) Status: Ongoing (Mary Magallanes RN) Outcome: Patient will Verbalize Understanding of Desired Content, and/or Performs Desired Skill Prior to Discharge (Mary Magallanes RN) Status: Ongoing (Mary Magallanes RN) Infection State: Risk For (Mary Magallanes RN) Related To: Surgical Procedures; Premature/Prolonged Rupture of Membranes; Invasive Procedures; Altered Tissue Integrity (Mary Magallanes RN) Goal(s): The Patient will be Free of Infection, Vital Signs Stable and Lab Work within Normal Parameters (Mary Magallanes RN) Interventions: Instruct and Reinforce Proper Handwashing, Hygiene, and Care Techniques to Patient and Family; Monitor Vital Signs; Monitor Patient for the Following Signs of Infection: Fever, Abdominal Tenderness, Unusual Discharge; Monitor Aminiotic Fluid, Urine and Lochia for Color and Odor; Observe Wounds, Incisions and Invasive Line Sites for Redness, Drainage and Edema; Assess IV Sites per Hospital Policy; Monitor Lab and Test Results and Notify Provider of Abnormal Findings; Assess Nutritional Status and Promote Good Nutrition (Mary Magallanes RN) Outcome: Patient will Remain Free of Infection (Mary Magallanes RN) Status: Ongoing (Mary Magallanes RN) Outcome: Infection will be Recognized Early to Allow for Prompt Treatment (Mary Magallanes RN) Status: Ongoing (Mary Magallanes RN) Outcome: Patient will have Vital Signs Within Expected Range (Mary Magallanes RN) Status: Ongoing (Mary Magallanes RN) Status: Ongoing (aMry Magallanes RN) Impaired Skin Integrity State: Risk For (Mary Magallanes RN) Related To: Vaginal Delivery; Surgical Procedures; Altered Tissue Integrity; Invasive Procedures (Mary Magallanes RN) Goal(s): Patient will Maintain Optimal Skin Integrity, Free of Breakdown, Injury or Infection (Mary Magallanes RN) Interventions: Complete Screening for Pressure Ulcer Risk and Initiate Protocol per Hospital Policy; Monitor Site of Skin Impairment for Color Changes, Redness, Swelling, Warmth, Pain or Other Signs of Infection; Encourage and Assist with Position Changes; Monitor Patient's Mobility Status; Provide Adequate Nutrition and Fluids; Teach Patient Appropriate Hygienic Care; Teach Patient/Family Skin Care Management (Mary Magallanes RN) Outcome: Patient will not have Evidence of Injury Such as Skin Breakdown, Scrapes, Cuts, or Bruising (Mary Magallanes RN) Status: Ongoing (Mary Magallanes RN) Outcome: Patient will Report Any Altered Sensation or Pain at Site of Skin Impairment (Mary Magallanes RN) Status: Ongoing (Mary Magallanes RN) Outcome: Patients Incisions and Wounds will be without Signs or Symptoms of Infection (Mary Magallanes RN) Status: Ongoing (Mary Magallanes RN) Outcome: Patient will Demonstrate Understanding of Plan to Heal Skin and Prevent Reinjury and Verbalize Risk Factors (Mary Magallanes RN) Status: Ongoing (Mary Magallanes RN) Grieving State: Risk For (Mary Magallanes RN) Related To: Alteration in an Expected Outcome (Mary Magallanes RN) Goal(s): Patient and Family will Demonstrate Effective Coping And Or Grief Reaction (Mary Magallanes RN) Interventions: Support the Patient/Familys Expression of Pain; Identify Emotional and Spiritual Needs of Patient/Family; Create a Quiet and Comfortable Environment; Facilitate Patient/Family Spending Time With Infant (Mary Magallanes RN) Status: Ongoing (Mary Magallanes RN) Outcome: Patient/Family will have Spent Time With and/or Held Infant (Mary Magallanes RN) Status: Ongoing (Mary Magallanes RN) Datetime: 10/07/2016 10:48 Pain State: Risk For (Mary Magallanes RN) Related To: Labor and Delivery Process; Complication(s) of ; Disease Process; Treatment and Procedures (Mary Magallanes RN) Goal(s): Patients Pain will be Assessed and Managed; Patient will Verbalize Adequate Relief of Pain or the Ability to [place] with Current Pain (Mary Magallanes RN) Interventions: Assess Pain Severity on Scale of 0 (None) to 5 (Severe); Assess Type, Location and Intensity of Pain Each Time Client Reports Discomfort and Notify Provider if Unusal Pain Develops; Encourage Proper Breathing and Relaxation Techniques; Offer Alternatives Such as Repositioning, Calm Environment, Massages, Diversional Activities, Ice Pack, Splinting, and Ambulation; Administer Analgesics as Ordered; Assist with Epidural Placement as Appropriate; Evaluate Therapeutic Effectiveness of Medication and Treatments (Mary Magallanes RN) Outcome: Patient will Report Absence or Relief of Pain Consistent with Established Pain Goal (Mary Magallanes RN) Status: Ongoing (Mary Magallanes RN) Outcome: Patient will have a Decrease in Signs and Symptoms of Discomfort (Mary Magallanes RN) Status: Ongoing (Mary Magallanes RN) Outcome: Pain will be Controlled During Procedures (Mary Magallanes RN) Status: Ongoing (Mary Magallanes RN) Anxiety State: Risk For (Mary Magallanes RN) Related To: Labor and Delivery Process; Surgical Procedure; Perceived or Actual Threat to ; Fear of Unknown; Situational Crisis; Medical Interventions; Significant Life Event (Mary Magallanes RN) Goal(s): Patient will have Decreased Anxiety and be able to Function at Acceptable Levels (Mayr Magallanes RN) Interventions: Assess Verbal and Nonverbal Behavioral Indicators of Anxiety; Assist Patient to Identify and Verbalize Symptoms of Anxiety; Identify and Demonstrate Techniques to Control Anxiety; Assist Patient with Coping Mechanisms to Manage Anxiety; Provide Theraputic Touch for the Patient; Explain to Patient, Using a Calm Reassuring Approach and Nonmedical Terms, All Activities, Procedures, and Concerns; Instruct Patient and Family about Post Discharge Care, Limitations, Symptoms to Report and Resources Available (Mary Magallanes RN) Outcome: Patient will Identify, Verbalize and Demonstrate Techniques to Control Anxiety (Mary Magallanes RN) Status: Ongoing (Mary Magallanes RN) Outcome: Patient's Posture, Facial Expressions, Gestures and Activity Level will Reflect Decreased Anxiety (Mary Magallanes RN) Status: Ongoing (Mary Magallanes RN) Outcome: Patient will Verbalize a Sense of Control and/or Acceptance of the Situation (Mary Magallanes RN) Status: Ongoing (Mary Magallanes RN) Outcome: Patient will Identify and Utilize Support Person (Mary Magallanes RN) Status: Ongoing (Mary Magallanes RN) Knowledge Deficit State: Risk For (Mary Magallanes RN) Related To: Labor and Delivery Process; Surgical Procedures; Treatment and Procedures; Impending Alterations in Family Dynamics; Feeding and Infant Care; Community Resources and Available Support Mechanisms (Mary Magallanes RN) Goal(s): Patient will Accurately Verbalize Understanding of Plan of Care and Treatment; Patient and Family will Accurately Verbalize Understanding of the Disease Process (Mary Magallanes RN) Interventions: Assess Motivation and Willingness of Patient/Family to Learn; Assess Preferred Learning Mode: One to One Instruction, Reading, Videos, Group Discussion or Demonstration; Assess Barriers to Learning: Pain, Emotional State, Language Barrier, Cognitive Impairment, Visual or Hearing Deficits; Assess Patient and Family Knowledge of Disease Process, Medications and Treatment; Discuss Therapy and/or Treatment Options, Describe Rationale Behind Management, Therapy and Treatment Recommendations; Instruct Patient and Family on Signs and Symptoms to Report; Instruct Patient and Family on Medication Effects and Side Effects; Provide Appropriate and Timely Education Using Multiple Techniques; Provide Patient and Family with Support Group Information and Resources; Give Clear and Thorough Explanations and Demonstrations (Mary Magallanes RN) Outcome: Patient and Family will Verbalize Understanding of Condition, Treatment and Signs and Symptoms to Report (Mary Magallanes RN) Status: Ongoing (Mary Magallanes RN) Outcome: Patient will Identify Perceived Learning Needs and Express Motivation to Learn (Mary Magallanes RN) Status: Ongoing (Mary Magallanes RN) Outcome: Patient will Verbalize Understanding of Desired Content, and/or Performs Desired Skill Prior to Discharge (Mary Magallanes RN) Status: Ongoing (Mary Magallanes RN) Infection State: Risk For (Mary Magallanes RN) Related To: Surgical Procedures; Premature/Prolonged Rupture of Membranes; Invasive Procedures; Altered Tissue Integrity (Mary Magallanes RN) Goal(s): The Patient will be Free of Infection, Vital Signs Stable and Lab Work within Normal Parameters (Mary Magallanes RN) Interventions: Instruct and Reinforce Proper Handwashing, Hygiene, and Care Techniques to Patient and Family; Monitor Vital Signs; Monitor Patient for the Following Signs of Infection: Fever, Abdominal Tenderness, Unusual Discharge; Monitor Aminiotic Fluid, Urine and Lochia for Color and Odor; Observe Wounds, Incisions and Invasive Line Sites for Redness, Drainage and Edema; Assess IV Sites per Hospital Policy; Monitor Lab and Test Results and Notify Provider of Abnormal Findings; Assess Nutritional Status and Promote Good Nutrition (Mary Magallanes RN) Outcome: Patient will Remain Free of Infection (Mary Magallanes RN) Status: Ongoing (Mary Magallanes RN) Outcome: Infection will be Recognized Early to Allow for Prompt Treatment (Mary Magallanes RN) Status: Ongoing (Mary Magallanes RN) Outcome: Patient will have Vital Signs Within Expected Range (Mary Magallanes RN) Status: Ongoing (Mary Magallanes RN) Status: Ongoing (Mary Magallanes RN) Impaired Skin Integrity State: Risk For (Mary Magallanes RN) Related To: Vaginal Delivery; Surgical Procedures; Altered Tissue Integrity; Invasive Procedures (Mary Magallanes RN) Goal(s): Patient will Maintain Optimal Skin Integrity, Free of Breakdown, Injury or Infection (Mary Magallanes RN) Interventions: Complete Screening for Pressure Ulcer Risk and Initiate Protocol per Hospital Policy; Monitor Site of Skin Impairment for Color Changes, Redness, Swelling, Warmth, Pain or Other Signs of Infection; Encourage and Assist with Position Changes; Monitor Patient's Mobility Status; Provide Adequate Nutrition and Fluids; Teach Patient Appropriate Hygienic Care; Teach Patient/Family Skin Care Management (Mary Magallanes RN) Outcome: Patient will not have Evidence of Injury Such as Skin Breakdown, Scrapes, Cuts, or Bruising (Mray Magallanes RN) Status: Ongoing (Mary Magallanes RN) Outcome: Patient will Report Any Altered Sensation or Pain at Site of Skin Impairment (Mary Magallanes RN) Status: Ongoing (Mary Magallanes RN) Outcome: Patients Incisions and Wounds will be without Signs or Symptoms of Infection (Mary Magallanes RN) Status: Ongoing (Mary Magallanes RN) Outcome: Patient will Demonstrate Understanding of Plan to Heal Skin and Prevent Reinjury and Verbalize Risk Factors (Mary Magallanes RN) Status: Ongoing (Mary Magallanes RN) Grieving State: Risk For (Mary Magallanes RN) Related To: Alteration in an Expected Outcome (Mary Magallanes RN) Goal(s): Patient and Family will Demonstrate Effective Coping And Or Grief Reaction (Mary Magallanes RN) Interventions: Support the Patient/Familys Expression of Pain; Identify Emotional and Spiritual Needs of Patient/Family; Create a Quiet and Comfortable Environment; Facilitate Patient/Family Spending Time With (Mary Magallanes RN) Status: Ongoing (Mary Magallanes RN) Outcome: Patient/Family will have Spent Time With and/or Held Infant (Mary Magallanes RN) Status: Ongoing (Mary Magallanes RN)
[2016-10-09] MEDS: CEFAZOLIN SODIUM 1 GM in DEXTROSE 5%-WATER 50 ML IV SCH ×2 (02:07→08:30)
[2016-10-09] MEDS: OXYCODONE-ACETAMINOPHEN 5-325 MG TABLET PO PRN ×2 (02:07→09:35)
[2016-10-09] MEDS: IBUPROFEN 800 MG TABLET PO SCH (05:28)
--- NOTE | 2016-10-09 06:01 | L&D Current Admission ---
Current Admit Datetime Report Generated by CPN: 10/09/2016 06:00 ADMISSION INFORMATION Current Admit Date/Time: 10/07/2016 10:45 (10/07/2016 10:45:Mary Magallanes RN) Reason for Admission: Onset of Labor (10/07/2016 10:45:Mary Magallanes RN) Chief Complaint: Contractions; Vaginal Bleeding (10/07/2016 10:12:Mary Jo Zafar RN) Medications During : Ferrous Sulfate (Iron); Vitamin (10/07/2016 10:45:Mary Magallanes RN) EGA per Dates: 31.2 (10/07/2016 10:45:QS system process) Method of Arrival: Stretcher (10/07/2016 10:45:Mary Magallanes RN) Admitted From: Home (10/07/2016 10:45:Mary Magallanes RN) Reason for Induction: Not Applicable (10/07/2016 10:45:Mary Magallanes RN) Records Available: Yes (10/07/2016 10:45:Mary Magallanes RN) General Admission Information: Reviewed; Updated; Confirmed (10/07/2016 10:45:Mary Magallanes RN) General Admission Reviewed By: Manolo Magallanes RN (10/07/2016 10:45:Mary Magallanes RN) BELONGINGS/ADVANCED DIRECTIVES Valuables/Personal Effects: Cell Phone (10/07/2016 10:45:Mary Magallanes RN) Other Belongings: See Belongins sheet (10/07/2016 10:45:Mary Magallanes RN) Disposition of Belongings: Kept with Patient (10/07/2016 10:45:Mary Magallanes RN) Advance Direct for Healthcare: No, and Wants No Information (10/07/2016 10:45:Mary Magallanes RN) Durable Power of [employer] Tufting Machine Operator: No (10/07/2016 10:45:Mary Magallanes RN) Living Will: No (10/07/2016 10:45:Mary Magallanes RN) Organ Donor: No (10/07/2016 10:45:Mary Magallanes RN) Pt Rights Information Given: Yes (10/07/2016 10:45:Mary Magallanes RN) Pt Understands Pt Rights: Yes (10/07/2016 10:45:Mary Magallanes RN) LEARNING ASSESSMENT Knowledge Level: Understands L_D Process; Understands Care Activities; Had Pre-Hospital Education; Understands Diagnosis (10/07/2016 10:45:Mary Magallanes RN) Barriers to Learning: None (10/07/2016 10:45:Mary Magallanes RN) Learning Readiness: Motivated (10/07/2016 10:45:Mary Magallanes RN) Learns Best By: 1 to 1 Instruction (10/07/2016 10:45:Mary Magallanes RN) Learning Needs: Labor and Delivery Process; Pain Management; Symptoms to Report; Treatment Plan; Medication; Diagnosis; Nutrition; Equipment; Care; Community Resources (10/07/2016 10:45:Mary Magallanes RN) DOMESTIC VIOLANCE SCREENING Dom Viol Threatened/Hurt: No (10/07/2016 10:45:Mary Magallanes RN) Hx of Abuse/Neglect past 2yrs: No (10/07/2016 10:45:Mary Magallanes RN) Feel Unsafe Going Home: No (10/07/2016 10:45:Mary Magallanes RN) Addt'l Observ Indicating Abuse: No (10/07/2016 10:45:Mary Magallanes RN) Reason Unable to Complete Screen: N/A, Screen Completed (10/07/2016 10:45:Mary Magallanes RN) Considered Personal Harm/Suicide: No (10/07/2016 10:45:Mary Magallanes RN) NUTRITIONAL/FUNCTIONAL SCREENING Problem with Appetite >5 Days: No (10/07/2016 10:45:Mary Magallanes RN) Chew/Swallow Difficulties: No (10/07/2016 10:45:Mary Magallanes RN) Inappropriate Wt Gain/Loss: No (10/07/2016 10:45:Mary Magallanes RN) Presence Skin Breakdown/Ulcer: No (10/07/2016 10:45:Mary Magallanes RN) Special Diet: No (10/07/2016 10:45:Mary Magallanes RN) Pt Requests Receiving Teller Visit: No (10/07/2016 10:45:Mary Magallanes RN) Hx of Any of the Following?: N/A (10/07/2016 10:45:Mary Magallanes RN) New Diagnosis of: N/A (10/07/2016 10:45:Mary Magallanes RN) Requires Assist w/Ambulation: No (10/07/2016 10:45:Mary Magallanes RN) Uses Assist Device to Ambulate: No (10/07/2016 10:45:Mary Magallanes RN) Pt Requires Help w/ADL's: No (10/07/2016 10:45:Mary Magallanes RN)
--- NOTE | 2016-10-09 06:01 | L&D General Admission ---
General Admit Datetime Report Generated by CPN: 10/09/2016 06:00 INFORMATION Patient Age: 26 (10/07/2016 10:25:QS system process) EDC: 12/07/2016 00:00 (10/07/2016 10:27:Hazel Werner RN) : 5 (10/07/2016 10:27:Mary Jo Zafar RN) Para: 1 (10/07/2016 10:27:Hazel Werner RN) Term: 1 (10/07/2016 10:27:Hazel Werner RN) : 0 (10/07/2016 10:27:Hazel Werner RN) Spontaneous Abortions: 0 (10/07/2016 10:27:Hazel Werner RN) Induced Abortions: 2 (10/07/2016 10:27:Hazel Werner RN) Livin (10/07/2016 10:27:Hazel Werner RN) Cesareans: 0 (10/07/2016 10:27:Hazel Werner RN) VBACs: 0 (10/07/2016 10:27:Hazel Werner RN) Ectopic: 0 (10/07/2016 10:27:Hazel Werner RN) Multiple Births: 0 (10/07/2016 10:27:Hazel Werner RN) Baby, Number in Womb: 2 (10/07/2016 10:27:Hazel Werner RN) CARE Primary Rubber Tire Curer: [place] (10/07/2016 10:27:Hazel Werner RN) Month of 1st Visit: September 2016 (10/07/2016 10:27:Mary Jo Zafar RN) Adequate Care: No (10/07/2016 10:27:Mary Jo Zafar RN) Prepregnancy Weight (lb): 156 (10/07/2016 10:27:Hazel Werner RN) Prepregnancy Weight (kg): 70.9 (10/07/2016 10:27:QS system process) Height (in): 63 (10/08/2016 12:28:QS system process) ALLERGIES Medication Allergy: No (10/07/2016 10:27:Hazel Werner RN) Medication Allergies: No Known Allergies (10/07/2016) (10/07/2016 10:51:QS system process) Latex Allergy: No Latex Allergies (10/07/2016 10:27:Mary Jo Zafar RN) Food Allergies: None (10/07/2016 10:27:Mary Jo Zafar RN) Environmental Allergies: None (10/07/2016 10:27:Mary Jo Zafar RN) COMMUNICATION Primary Language: Czech (10/07/2016 10:27:Hazel Werner RN) Medical Tx Preferred Language: Czech (10/07/2016 10:27:Hazel Werner RN) Communication Barrier(s): None (10/07/2016 10:27:Hazel Werner RN) DEMOGRAPHICS Address: [address] [place] [id number] (10/07/2016 10:25:QS system process) Zipcode: [address] (10/07/2016 10:25:QS system process) Home (10/07/2016 10:25:QS system process) SSN: [id number] (10/07/2016 10:25:QS system process) Next of Kin Name: KASHIF PATEL (10/07/2016 10:25:QS system process) Next of Kin (10/07/2016 10:25:QS system process) Next of Kin Relationship: MO (10/07/2016 10:25:QS system process) Date of : 1990 (10/07/2016 10:25:QS system process) Marital Status: Legally (10/07/2016 10:25:QS system process) Sex: Female (10/07/2016 10:25:QS system process) Race: Other (10/07/2016 10:25:QS system process) Ethnicity: or (10/07/2016 10:25:QS system process) Congregational: None (10/07/2016 10:25:QS system process) DRUG AND ALCOHOL USE Alcohol: No (10/07/2016 10::Mary Jo Zafar RN) Cigarettes: Former Smoker. [id number] (10/07/2016 10::Hazel Werner RN) Marijuana: Yes (10/07/2016 10::Hazel Werner RN) Cocaine: Yes (10/07/2016 10::Mary Jo Zafar RN) Other Illicit Drugs: No (10/07/2016 10::Hazel Werner RN) VACCINE HISTORY Influenza Vaccine: Yes (10/07/2016 10:27:Mary Jo Zafar RN) Pneumococcal Vaccine: No (10/07/2016 10:27:Mary Jo Zafar RN) Tetanus Vaccine: No (10/07/2016 10:27:Mary Jo Zafar RN) Tdap Vaccine: No (10/07/2016 10:27:Mary Jo Zafar RN) Hepatitis B Vaccine: No (10/07/2016 10:27:Mary Jo Zafar RN) Moto Mix Operator: [facility] (10/07/2016 10:27:Mary Jo Zafar RN) Feeding Preference: Formula (10/07/2016 10:27:Mary Jo Zafar RN) Benefit of Breast Feed Discussed: Yes (10/07/2016 10:27:Mary Jo Zafar RN) Circumcision: Yes (10/07/2016 10:27:Mary Jo Zafar RN) Classes Attended: No (10/07/2016 10:27:Mary Jo Zafar RN) Tubal Ligation: Yes (10/07/2016 10:27:Mary Jo Zafar RN) Tubal Authorization Signed: Yes (10/07/2016 10:27:Mary Jo Zafar RN) Consent: N/A (10/07/2016 10:27:Mary Jo Zafar RN) Consent Signed: Yes (10/07/2016 10:27:Mary Jo Zafar RN) Pain Management Plans: Epidural (10/07/2016 10:27:Mary Jo Zafar RN) Plans for Labor and Delivery: None (10/07/2016 10:27:Mary Jo Zafar RN) Support Person: [facility] (10/07/2016 10:27:Mary Jo Zafar RN) Support Person Relationship: Significant Other (10/07/2016 10:27:Mary Jo Zafar RN) Cultural/Spritual Practice: No (10/07/2016 10:27:Mary Jo Zafar RN) Spir/Cult Dietary Needs: No (10/07/2016 10:27:Mary Jo Zafar RN) LIVING SITUATION/DISCHARGE PLAN Living Arrangements: Apartment (10/07/2016 10:27:Mary Jo Zafar RN) Adequate Access to:: Electric; Heat; Refrigeration; Plumbing/Running water; Phone; Transportation (10/07/2016 10:27:Mary Jo Zafar RN) WIC Program: Yes (10/07/2016 10:27:Mary Jo Zafar RN) Discharge Lead Javascript Engineer Person: [facility] (10/07/2016 10:27:Mary Jo Zafar RN) Person to Help after Discharge: [facility] (10/07/2016 10:27:Mary Jo Zafar RN) Currently Using Commun Resources: Yes (10/07/2016 10:27:Mary Jo aZfar RN) Specify Current Resource Used: Medicaid (10/07/2016 10:27:Mary Jo Zafar RN) Outside Agency/Counter Tacker: Yes (10/07/2016 10:27:Mary Jo Zafar RN) Specify Agency/ Counter Tacker: unsure (10/07/2016 10:27:Mary Jo Zafar RN) Adoption Requested: No (10/07/2016 10:27:Mary Jo Zafar RN) Pt Contact w/[facility] : N/A (10/07/2016 10:27:Mary Jo Zafar RN) LABS Blood Type: A Positive (10/07/2016 10:27:Mary Jo Zafar RN) Antibody Screen: negative (10/07/2016 10:27:Hazel Werner RN) Hemoglobin: 9.1 L (10/08/2016 06:28:QS system process) Hematocrit: 27.1 L (10/08/2016 06:28:QS system process) MCV: 96 (10/08/2016 06:28:QS system process) Group Beta Strep: unknown (10/07/2016 10:27:Hazel Werner RN) RPR/VDRL: Nonreactive (10/07/2016 10:27:Hazel Werner RN) HIV Exposure Test: Negative (10/07/2016 10:27:Hazel Werner RN) Hepatitis B: Negative (10/07/2016 10:27:Mary Jo Zafar RN) Rubella: Immune (10/07/2016 10:27:Mary Jo Zafar RN) OB/PREVIOUS HISTORY Previous Procedures: Ultrasound; NST (10/07/2016 10:27:Mary Jo Zafar RN) Current Procedures: Ultrasound (10/07/2016 10:27:Mary Jo Zafar RN) History of Previous : No (10/07/2016 10:27:Mary Jo Zafar RN) History of Gestational Diabetes: No (10/07/2016 10:27:Mary Jo Zafar RN) History of PIH: No (10/07/2016 10:27:Mary Jo Zafar RN) History of Incompetent Cervix: No (10/07/2016 10:27:Mary Jo Zafar RN) History of Placenta Previa/Abrup: No (10/07/2016 10:27:Mary Jo Zafar RN) History of Macrosomia: No (10/07/2016 10:27:Mary Jo Zafar RN) History of IUGR: No (10/07/2016 10:27:Mary Jo Zafar RN) History of Hemorrhage: No (10/07/2016 10:27:Mary Jo Zafar RN) History of Loss/Stillborn: No (10/07/2016 10:27:Mary Jo Zafar RN) History of : No (10/07/2016 10:27:Mary Jo Zafar RN) History of D (Rh) Sensitization: No (10/07/2016 10:27:Mary Jo Zafar RN) History Recurrent Loss/Stillborn: No (10/07/2016 10:27:Mary Jo Zafar RN) History Depression/PP Depression: No (10/07/2016 10:27:Mary Jo Zafar RN) History of Uterine Anomaly/KENDRA: No (10/07/2016 10:27:Mary Jo Zafar RN) History of Infertility: No (10/07/2016 10:27:Mary Jo Zafar RN) History of ART Treatment: No (10/07/2016 10:27:Mary Jo Zafar RN) History of KENDRA: No (10/07/2016 10:27:Mary Jo Zafar RN) Comments Obstetrical History: G1 - at 41 wks (2009), shoulder dystocia G2 - EAB at 18 wks (2011) G3 - EAB at 18 wks (2013) G4 - EAB at 18 wks (2015) G5 - current , late PNC, twin gestation (10/07/2016 10:27:Mary Jo Zafar RN) MEDICAL HISTORY Med Hx Diabetes: No (10/07/2016 10:27:Mary Jo Zafar RN) Med Hx Hypertension: No (10/07/2016 10:27:Mary Jo Zafar RN) Med Hx Heart Disease: No (10/07/2016 10:27:Mary Jo Zafar RN) Med Hx Autoimmune Disorder: No (10/07/2016 10:27:Mary Jo Zafar RN) Med Hx Kidney Disease/UTI: No (10/07/2016 10:27:Mary Jo Zafar RN) Med Hx Neurologic/Epilepsy: No (10/07/2016 10:27:Mary Jo Zafar RN) Med Hx Psychiatric Disorders: No (10/07/2016 10:27:Mary Jo Zafar RN) Med Hx Hepatitis/Liver Disease: No (10/07/2016 10:27:Mary Jo Zafar RN) Med Hx Varicosities/Phlebitis: No (10/07/2016 10:27:Mary Jo Zafar RN) Med Hx Thyroid Dysfunction: No (10/07/2016 10:27:Mary Jo Zafar RN) Med Hx Trauma/Violence: No (10/07/2016 10:27:Mary Jo Zafar RN) Med Hx Blood Transfusion: No (10/07/2016 10:27:Mary Jo Zafar RN) Med Hx Pulmonary (Asthma,TB): No (10/07/2016 10:27:Mary Jo Zafar RN) Med Hx Breast: No (10/07/2016 10:27:Mary Jo Zafar RN) Med Hx STREET AND BUILDING DECORATOR Surgery: No (10/07/2016 10:27:Mary Jo Zafar RN) Med Hx Hospitalization/Surgery: Yes (10/07/2016 10:27:Hazel Werner RN) Med Hx Anesthetic Complications: No (10/07/2016 10:27:Mary Jo Zafar RN) Med Hx Abnormal Pap Smear: No (10/07/2016 10:27:Mary Jo Zafar RN) Other Medical Diseases: No (10/07/2016 10:27:Mary Jo Zafar RN) Med Hx Significant Family Hx: No (10/07/2016 10:27:Mary Jo Zafar RN) Details of Med/Surg Hx: Childbirth, tonsilectomy age 6, EAB/D_C 2011 and 2015 (10/07/2016 10:27:Hazel Werner RN) INFECTIOUS HISTORY Inf Hx Gonorrhea: No (10/07/2016 10:27:Mary Jo Zafar RN) Inf Hx Chlamydia: Yes (10/07/2016 10:27:Hazel Werner RN) Inf Hx Syphilis: No (10/07/2016 10:27:Mary Jo Zafar RN) Inf Hx HIV/AIDS: No (10/07/2016 10:27:Mary Jo Zafar RN) Inf Hx Human Papilloma Virus: No (10/07/2016 10:27:Mary Jo Zafar RN) Inf Hx Pt/Partner Genital Herpes: No (10/07/2016 10:27:Mary Jo Zafar RN) Inf Hx Tuberculosis/Exposure: No (10/07/2016 10:27:Mary Jo Zafar RN) Inf Hx Hepatitis B,C: No (10/07/2016 10:27:Mary Jo Zafar RN) Inf Hx Rash or Viral Illness: No (10/07/2016 10:27:Mary Jo Zafar RN) Details of Infectious Hx: chlamydia + 09/21/16 (10/07/2016 10:27:Hazel Werner RN) GENETIC HISTORY Gen Hx Age >=35 at [place]: No (10/07/2016 10:27:Mary Jo Zafar RN) Gen Hx Thalassemia: No (10/07/2016 10:27:Mary Jo Zafar RN) Gen Hx Congenital Heart Defect: No (10/07/2016 10:27:Mary Jo Zafar RN) Gen Hx Neural Tube Defect: No (10/07/2016 10:27:Mary Jo Zafar RN) Gen Hx Down's Syndrome: No (10/07/2016 10:27:Mary Jo Zafar RN) Gen Hx Leo-Sachs: No (10/07/2016 10:27:Mary Jo Zafar RN) Gen Hx Angelica: No (10/07/2016 10:27:Mary Jo Zafar RN) Gen Hx Familial Dysautonomia: No (10/07/2016 10:27:Mary Jo Zafar RN) Gen Hx Sickle Cell Disease/Trait: No (10/07/2016 10:27:Mary Jo Zafar RN) Gen Hx Hemophilia/Blood Disorder: No (10/07/2016 10:27:Mary Jo Zafar RN) Gen Hx Muscular Dystrophy: No (10/07/2016 10:27:Mary Jo Zafar RN) Gen Hx Cystic Fibrosis: No (10/07/2016 10:27:Mary Jo Zafar RN) Gen Hx Huntingtons Chorea: No (10/07/2016 10:27:Mary Jo Zafar RN) Gen Hx Mental Retardation/Autism: No (10/07/2016 10:27:Mary Jo Zafar RN) Gen Hx Tested for Fragile X: No (10/07/2016 10:27:Mary Jo Zafar RN) Gen Hx Other Inher/Chromosomal: No (10/07/2016 10:27:Mary Jo Zafar RN) Gen Hx Maternal Metabolic DO: No (10/07/2016 10:27:Mary Jo Zafar RN) Gen Hx Pt Father or FOB Defect: No (10/07/2016 10:27:Mary Jo Zafar RN) Gen Hx Other Genetic History: No (10/07/2016 10:27:Mary Jo Zafar RN) Gen Hx Drugs/Meds since LMP: No (10/07/2016 10:27:Mary Jo Zafar RN)
[2016-10-09 08:06] VITALS: BP 113/66
--- NOTE | 2016-10-09 09:02 | PDOC DISCHARGE SUMMARY ---
Final Diagnosis Discharge Date: 10/09/16 - Final Diagnosis (1) Vaginal delivery Is this a current diagnosis for this admission?: Yes (2) Delivery by emergency caesarean section Is this a current diagnosis for this admission?: Yes (3) Drug abuse Is this a current diagnosis for this admission?: Yes (4) Placenta abruption, delivered, current hospitalization Is this a current diagnosis for this admission?: Yes (5) twins Is this a current diagnosis for this admission?: Yes Discharge Data - Discharge Medication Home Medications: Vit/Iron Fumarate/FA [ Tablet] 1 tab PO DAILY 10/07/16 Reason(s) for Admission: Onset of Labor, Labor, Obstetric Complications , Twins Procedures: NST, Management of Obstetric Complications Intrapartum Procedure(s): Spontaneous Vaginal Delivery, : Low Cervical, Transverse - Diagnosis Test Laboratory: Temp Pulse Resp BP Pulse Ox 97.7 F 66 11 L 113/66 100 10/09/16 08:23 10/09/16 08:23 10/09/16 08:23 10/09/16 07:45 10/09/16 08:23 10/07/16 10/07/16 10/08/16 10:59 11:05 06:28 RBC 2.92 L 2.83 L Hgb 9.5 L 9.1 L Hct 27.9 L 27.1 L Urine Opiates Screen NEGATIVE - Discharge information/Instructions Discharge Activity: Activity As Tolerated, Balance Activity w/Rest, No Driving, No Lifting Over 10 Pounds, No Lifting/Push/Pulling, Pelvic Rest, No tub bath Discharge Diet: Regular Disposition: HOME, SELF-CARE Follow up with: [facility] in: 3, Days
[2016-10-09] MEDS: PRENATAL VITAMIN W-O CA NO5/FE FUMARATE/FA CAPSULE PO SCH (09:30)
[2016-10-09] MEDS: DOCUSATE SODIUM 100 MG CAPSULE PO SCH (09:31)
--- NOTE | 2016-11-11 23:08 | Operative Report ---
Operative Report DATE OF SURGERY: 10/07/16 PREOPERATIVE DIAGNOSIS: 31week twins labor +cocaine and marijuana. Placental abruption. undesired future fertility POSTOPERATIVE DIAGNOSIS: same, delivered OPERATION: Spontaneous Vaginal Delivery Twin A. Primary STAT Low Transverse Section Twin B. Bilateral Tubal Ligation with filshie clips SURGEON: JAYLEEN HARRIS ANESTHESIA: GA TISSUE REMOVED OR ALTERED: placenta COMPLICATIONS: none ESTIMATED BLOOD LOSS: 1000 INTRAOPERATIVE FINDINGS: twin A male vertex 1570g (3lb7oz) ap 6/8 . Twin B male footling breech 1820g emergent c/s. twin placentas intact 3vc times 2 removed with noted abruption PROCEDURE: The patient was taken to the operating room for attempt at vaginal delivery of 31week twins in labor with suspected abruption due to cocaine use. Bleeding was minimal and FHT on both infants was reassuring. Twin A was vertex and underwent spontaneous vaginal delivery without difficulty. Twin B was noted to have good fht and was found by ultrasound to be in breech presentation. Vaginal exam revealed what felt to be feet through the sac. Chief Service Dispatcher held sac up and Physician attempted external version which was not successful. Spontaneous rupture of membranes occurred and no cord prolapse was noted but both feet came through cervix. Before attempt at internal version was begun, brisk bleeding and deceleration of fht to 70-80s. At this time, patient was converted for stat csection. General anesthesia was placed without difficulty. The patient was prepped and draped in the normal sterile fashion in the dorsal supine position with a leftward tilt. Time out procedure was performed. Anesthesia was determined to be adequate and a pfannenstiel incision was made. The fascia was nicked in the midline then extended bilaterally with Gimenez scissors. The fascia was elevated and then the rectus muscles dissected off sharply. The rectus muscles were then in the midline and the peritonuem identified. The peritoneum was entered sharply and extended with good visualization of the bladder. Bladder blade was inserted and the bladder flap carefully dissected off the lower uterine segment. A transverse incision was made with the scalpel then extended bilaterally in an upward outward motion across the lower uterine segment. . The breech was grasped and elevated easily through the incision followed by the remainder of the . The cord was doubly clamped and ligated. The infant was handed off the operative field to the waiting pediatric team. The placenta was then extracted manually intact. The uterus was exteriorized and cleansed of membranous tissue with a sponge on the ross lift operator's hand. The uterine incision was then repaired using 0 vicryl in a running locked fashion. A second layer of the same suture was used to imbricate for hemastasis. Attention was then turned to the fallopian tubes. Filshie clip applicator was loaded and a clip placed across the midportion of each tube. Care was taken to ensure full occlusion of each tube. The uterus was then returned to the abdomen and gutters were cleared of clots and debris. The fascial incision was closed with 0 vicryl in a running fashion to the midline. The subcutaneous layer was closed with 0 plain in a running stitch. the skin was closed with [place]. Sponge, lap and needle counts were correct. The patient was transferred to recovery in stable condition.
== END 2016-10-09 10:54 | disposition home or self-care (01) | DRG 765 ==
LOC: LC 10:25 → LR 10:51 → 2S 19:29
PROVIDERS: ADMIT Obstetrics & Gynecology; ATTEND Obstetrics & Gynecology
PROC: 10E0XZZ Delivery of Products of Conception, External Approach (ICD-10-PCS; principal; 2016-10-07)
PROC: 10D00Z1 Extraction of Products of Conception, Low, Open Approach (ICD-10-PCS; 2016-10-07)
PROC: 0UL70CZ Occlusion of Bilateral Fallopian Tubes with Extraluminal Device, Open Approach (ICD-10-PCS; 2016-10-07)
PROC: 3E0234Z Introduction of Serum, Toxoid and Vaccine into Muscle, Percutaneous Approach (ICD-10-PCS; 2016-10-09)
DX: O60.14X0 Preterm labor third trimester with preterm delivery third trimester, not applicable or unspecified (principal); O45.93 Premature separation of placenta, unspecified, third trimester; O99.324 Drug use complicating childbirth; O30.033 Twin pregnancy, monochorionic/diamniotic, third trimester; O69.81X1 Labor and delivery complicated by cord around neck, without compression, fetus 1; O32.8XX2 Maternal care for other malpresentation of fetus, fetus 2; O76 Abnormality in fetal heart rate and rhythm complicating labor and delivery; F14.10 Cocaine abuse, uncomplicated; F12.10 Cannabis abuse, uncomplicated; O09.33 Supervision of pregnancy with insufficient antenatal care, third trimester; Z3A.31 31 weeks gestation of pregnancy; Z37.2 Twins, both liveborn; Z30.2 Encounter for sterilization; Z23 Encounter for immunization
CPT/HCPCS: 1961; 36415; 80307; 80353; 81001; 82803; 85025; 85027; 86592; 86850; 86900; 86901; 88307; 90715; 94799; G0480; J0131; J0690; J0702; J1170; J1200; J1885; J2175; J2210; J2270; J2405; J2550; J2590; J2704; J3490

== ENCOUNTER 2017-07-01 10:38 | Emergency (ER) | payer SELFPAY ==
[2017-07-01] MEDS ORDERED: IBUPROFEN 600 MG TABLET PO ONE (11:17)
[2017-07-01] MEDS ORDERED: DIPHENHYDRAMINE HCL 50 MG CAPSULE PO ONE (11:17)
[2017-07-01] MEDS ORDERED: FAMOTIDINE 20 MG TABLET PO ONE (11:17)
[2017-07-01] MEDS ORDERED: PREDNISONE 20 MG TABLET PO ONE (11:17)
--- NOTE | 2017-07-01 11:23 | ER Document Report ---
ED Skin Rash/Insect Bite/Abscs - General Chief Complaint: Arm Problem Stated Complaint: SPIDER BITE Time Seen by Provider: 07/01/17 11:08 Mode of Arrival: Ambulatory Information source: Patient Notes: 27-year-old female presented to ED for red swollen area to her right lower arm. She states she was bit by something Saturday night and the swelling got worse yesterday and today. She states she has taken some Benadryl with no relief. She denies any ice or elevation or any medications that she has applied to the area. Patient is in no acute distress at this time she is breathing normally no difficulty speaking in full sentences. TRAVEL OUTSIDE OF THE [place] IN LAST 30 DAYS: No - HPI Patient complains to provider of: Insect bite - With local reaction Onset: Other - Saturday Onset/Duration: Gradual Quality of pain: Burning, Pressure Severity: Moderate Pain Level: 4 Skin Character: Other - Insect bite with red swollen area on right forearm no signs or symptoms of infection Quality of rash: Painful Identify cause: Yes Exacerbated by: Denies Relieved by: Denies Similar symptoms previously: No Recently seen / treated by doctor: No - Related Data Allergies/Adverse Reactions: No Known Allergies Allergy (Verified 07/01/17 10:40) Past Medical History - General Information source: Patient - Social History Smoking Status: Current Every Day Smoker Cigarette use (# per day): Yes - ppd Chew tobacco use (# tins/day): No Smoking Education Provided: Yes - Less than 2 minutes Frequency of alcohol use: Social Drug Abuse: None Lives with: Friend Family History: Other - Pt is adopted. Does not know Patient has suicidal ideation: No Patient has homicidal ideation: No - Past Medical History Cardiac Medical History: Reports: None Pulmonary Medical History: Reports: None EENT Medical History: Reports: None Neurological Medical History: Reports: None Endocrine Medical History: Reports: None Renal/ Medical History: Reports: None Malignancy Medical History: Reports: None GI Medical History: Reports: None Musculoskeltal Medical History: Reports Hx Musculoskeletal Trauma Skin Medical History: Reports None Psychiatric Medical History: Reports: None Traumatic Medical History: Reports: Hx Fractures Infectious Medical History: Reports: None Past Surgical History: Reports: Hx Tonsillectomy - Immunizations Immunizations up to date: Yes Hx Diphtheria, Pertussis, Tetanus Vaccination: Yes Review of Systems - Review of Systems Constitutional: No symptoms reported EENT: No symptoms reported Cardiovascular: No symptoms reported Respiratory: No symptoms reported Gastrointestinal: No symptoms reported Genitourinary: No symptoms reported Female Genitourinary: No symptoms reported Musculoskeletal: No symptoms reported Skin: Other - Red swollen area to the right forearm where an insect bit her Hematologic/Lymphatic: No symptoms reported Neurological/Psychological: No symptoms reported -: Yes All other systems reviewed and negative Physical Exam - Vital signs Vitals: Temp Pulse Resp BP Pulse Ox 97.8 F 61 16 143/81 H 99 07/01/17 10:41 07/01/17 10:41 07/01/17 10:41 07/01/17 10:41 07/01/17 10:41 Interpretation: Normal - General General appearance: Appears well, Alert - HEENT Head: Normocephalic, Atraumatic Eyes: Normal Pupils: PERRL - Respiratory Respiratory status: No respiratory distress Chest status: Nontender Breath sounds: Normal Chest palpation: Normal - Cardiovascular Rhythm: Regular Heart sounds: Normal auscultation Murmur: No - Abdominal Inspection: Normal Distension: No distension Bowel sounds: Normal Tenderness: Nontender Organomegaly: No organomegaly - Back Back: Normal, Nontender - Extremities General upper extremity: Normal ROM, Normal temperature General lower extremity: Normal inspection, Nontender, Normal color, Normal ROM , Normal temperature, Normal weight bearing. No: Chace's sign Forearm: Tender, Other - Red swollen right forearm from an insect bite no signs or symptoms of infection - Neurological Neuro grossly intact: Yes Cognition: Normal Orientation: AAOx4 [place] Coma Scale Eye Opening: Spontaneous [place] Coma Scale Verbal: Oriented [place] Coma Scale Motor: Obeys Commands [place] Coma Scale Total: 15 Speech: Normal Motor strength normal: LUE, RUE, LLE, RLE Sensory: Normal - Psychological Associated symptoms: Normal affect, Normal mood - Skin Skin Temperature: Warm Skin Moisture: Dry Skin Color: Normal Course - Re-evaluation Re-evalutation: 07/01/17 13:12 Patient given instructions on local reaction to insect bites and care of the area. Patient was given prednisone Pepcid Benadryl and ibuprofen and a ice pack and encouraged to use ice and elevation at home. Patient to follow-up with her primary doctor. - Vital Signs Vital signs: Temp Pulse Resp BP Pulse Ox 97.7 F 73 16 132/86 H 99 07/01/17 11:29 07/01/17 11:29 07/01/17 10:41 07/01/17 11:29 07/01/17 11:29 Discharge - Discharge Clinical Impression: Insect bite of right forearm with local reaction Qualifiers: Encounter type: initial encounter Qualified Code(s): S50.861A - Insect bite ( nonvenomous) of right forearm, initial encounter Condition: Stable Disposition: HOME, SELF-CARE Instructions: Family Physicians / Practices Additional Instructions: Insect Sting You've been stung by an insect. The venom can cause pain, redness, and swelling. Right after the sting, we sometimes use adrenaline to reduce the reaction to the venom. This also stops any allergic reaction. You should apply cold compresses, rest and elevate the affected part, and take antihistamines. A more severe, itchy red swelling sometimes develops the next day. This is a local allergic reaction to the venom. This local allergy isn't dangerous. We treat it with cortisone-type medicine and antihistamines. Sometimes we use antibiotics if we're worried about infection. If you develop a fever, chills, a red streak, or swollen glands in the area of the bite, infection may be starting. Return at once. Insect stings from the bee and hornet family may cause a severe allergic reaction. Symptoms include hoarseness, shortness of breath, general redness of the skin, general itching, or lightheadedness. If any of these symptoms occur, you'll be treated with adrenalin and cortisone-like steroids. You should carry an "Anaphylaxis Kit" with you in the summer months so you can administer these medications to yourself before getting emergency medical care. STEROID MEDICATION: You have been given a medicine of the cortisone/steroid class. This medication is used to control inflammation or allergy. It is usually only given for a short period of time, until the acute process subsides. There are usually no side effects from short-term use of cortisone-like medications. Some persons feel an increased sense of well-being and are not sleepy at bedtime. Long-term use of cortisone medications is best avoided, unless required for a severe condition. If your condition does not remit, or relapses after the course of corticosteroid medication, you should consult your physician. Acid-Suppressing Medication You have a prescription for medicine which reduces the stomach's secretion of acid. Examples include Zantac, Tagament, and Pepcid. These drugs are often used to allow healing of ulcers or esophagitis. They may be needed to prevent recurrence of ulcers in some patients, or to prevent damage from acid reflux in the esophagus. Take all medication as prescribed, even after the pain is gone. Regular antacids may be added as needed if you have symptoms while taking this medicine. These medications sometimes are prescribed for allergic reactions because they have anti-histaminic effects and relieve the rash and itching of the reaction. There are usually no side effects from this medication. But, in rare cases and particularly in the elderly, serious problems can occur. Contact your doctor if there is fever, rash, hallucinations, confusion, or unusual bruising. Contact your doctor at once if you develop lightheadedness, black or bloody stool, or bloody vomitus. Diphenhydramine The use of diphenhydramine (Benadryl) has been recommended to control allergic symptoms. The 25 mg strength is available over- the-counter, as well as the elixir. This antihistamine is used for many symptoms. It's useful for itching, watering eyes and nose, allergic swelling, hives, and insect stings. The medication can be repeated four times daily. Age Elixir (12.5 mg/tsp) 25 mg pill 1 yr 1/4 tsp 2-3 yr 1/2 tsp 4-8 yr 1 tsp 9-14 yr 2 tsp one tab adult 1-2 tabs Antihistamines may cause drowsiness, especially with the first dose. Do not operate machinery or drive while under the effects of the medication. Do not combine the medication with alcohol, or with any other medication without talking to your doctor. Ibuprofen Ibuprofen is an excellent, safe drug for pain control. In addition, it has potent antiinflammatory effects which are beneficial, especially in the treatment of injuries, arthritis, or tendonitis. It's best to take ibuprofen with food. Persons with ulcer disease or allergy to aspirin should notify their physician of this before taking ibuprofen. Take the medication exactly as prescribed. Don't take additional doses unless instructed to do so by your doctor. If you develop wheezing, shortness of breath, hives, faintness, stomach pain, vomiting, or dark black stools, return for re-evaluation at once. Ice & Elevation Apply ice packs frequently against the painful area. Many different schedules are recommended, such as "20 minutes on, 20 minutes off" or "one hour ice, two hours rest." If you need to work, you may need to go longer between ice treatments. You should plan to have the area ice packed AT LEAST one- fourth of the time. The ice should be applied over the wrap, tape, or splint, or over a layer of cloth -- not directly against the skin. Some ice bags have a built-in cloth and can be put directly on the skin. Your injured part should be elevated as much as possible over the next 48 hours. Try to keep the injury above the level of the heart. Avoid use of the injured area. Elevation and rest will decrease the swelling. FOLLOW-UP CARE: If you have been referred to a physician for follow-up care, call the physician s office for an appointment as you were instructed or within the next two days. If you experience worsening or a significant change in your symptoms, notify the physician immediately or return to the Emergency Department at any time for re-evaluation. Prescriptions: Prednisone [Deltasone 20 mg Tablet] 2 tab PO DAILY 2 Days tablet Forms: Elevated Blood Pressure, Smoking Cessation Education, Return to Work
[2017-07-01 11:32] VITALS: BP 132/86
== END 2017-07-01 11:32 | disposition home or self-care (01) ==
LOC: ER 10:38
DX: S50.861A Insect bite (nonvenomous) of right forearm, initial encounter (principal); W57.XXXA Bitten or stung by nonvenomous insect and other nonvenomous arthropods, initial encounter; F17.210 Nicotine dependence, cigarettes, uncomplicated; Z71.6 Tobacco abuse counseling
CPT/HCPCS: 99281; J7512